=== PATIENT | male | born 1955 | race Caucasian/White ===

== ENCOUNTER 2022-12-30 18:42 | Inpatient (IN) | payer MEDICARE, MEDICAID, SELFPAY ==
[2022-12-30 19:08] VITALS: BP 133/94; PULSE 84; RESP 18; TEMP 36.2; O2SAT 95
[2022-12-30] MEDS: hydrOXYzine HCL 25 MG TABLET PO (20:16)
[2022-12-30] MEDS: traZODone HCL 50 MG TABLET PO (20:17)
[2022-12-30] MEDS: Divalproex Sodium 500 MG TABLET.DR 1500 MG PO (22:24)
--- NOTE | 2022-12-31 00:03 | PC.ADMIT ---
[id number] pt is a 67 yr old male who is a hospital to hospital transfer. he has cognitive deficits with an IQ of 59. pt recently walked out into traffic with the intention of ending his life. he has had previous attempts of ending his life in the same fashion. he resides at a custodial and states that he he his bored. he states that other residents stay in their rooms and do not interact with him. pt denies si and hi at this time. he is alert and responds appropriately. his affect is flat. his sensorium is intact. hand grasp equal/firm. culp in a purposeful fashion. ambulates independently with strong steady gait. pt states that he has hx of chronic arthritic pain is his back and legs.visible skin surfaces intact. he is edentulous. he states that he has no dentures. he has NIDDM and takes metformin bid. he is on a regular diet and he check his blood sugar in the mornings. resp effort is regular unlabored. hemodynamically stable. abdomen is unremarkable. took pills one at a time whole without difficulty. states normal bm earlier today. continent of bowel and bladder.
[2022-12-31 07:30] VITALS: BP 144/73; PULSE 93; RESP 16; TEMP 36.1; O2SAT 94
[2022-12-31 07:45] LABS: MANUAL DIFF FLAG NO
[2022-12-31 07:49] LABS: Basophils Percent Auto 0.7 % (0-2); Eosinophils Absolute Auto 0.3 X10*3/uL (0.0-0.4); Eosinophils Percent Auto 4.4 % (0-4); Hemoglobin 13.4 g/dl (14.0-18.0); Imm Gran Abs Auto 0.06 X10*3/uL (0.00-0.03); Lymphocytes Absolute Auto 1.7 X10*3/uL (1.2-4.9); Lymphocytes Percent Auto 28.2 % (20-40); Mean Corpuscular HGB Conc 33.5 g/dl (31.0-36.0); Mean Corpuscular Hemoglobin 31.2 pg (27.0-33.0); Mean Platelet Volume 9.7 fL (9.4-12.4); Monocytes Absolute Auto 0.7 X10*3/uL (0.1-1.2); Monocytes Percent Auto 12.1 % (2-11); Neutrophils Absolute Auto 3.2 x10*3/uL (2.0-8.3); Neutrophils Percent Auto 53.6 % (45-73); Platelet Count 247 X10*3/uL (160-400); Red Cell Distribution Width 13.2 % (11.0-16.0)
[2022-12-31 08:16] LABS: Estimated Average Glucose 174 mg/dL; Hemoglobin A1c % 7.7 %
[2022-12-31 08:22] LABS: Alanine Aminotransferase 18 U/L (0-40); Albumin Level 3.8 g/dL (3.5-5.0); Alkaline Phosphatase 117 U/L (39-117); Anion Gap 14 (12-20); Aspartate Amino Transferase 20 U/L (5-37); Bilirubin Total 0.4 mg/dL (0.0-1.0); Blood Urea Nitrogen 13 mg/dL (9-16); Calcium 8.6 mg/dL (8.4-10.2); Carbon Dioxide 24 mmol/L (22-29); Chloride 105 mmol/L (96-108); Cholesterol 128 mg/dL; Estimated Glomerular Filt Rate > 60; Glucose Fasting 148 mg/dL (60-99); HDL Cholesterol 30 mg/dL; LDL Cholesterol Calculated 70 mg/dl; Potassium 4.6 mmol/L (3.3-5.1); Sodium 138 mmol/L (135-145); Triglycerides 144 mg/dL
[2022-12-31 08:40] LABS: TSH reflex Free T4 1.15 uIU/mL (0.32-4.0)
[2022-12-31 08:48] LABS: Valproate 53.8 mcg/mL (50.0-100.0)
[2022-12-31] MEDS: DULoxetine HCl 60 MG CAPSULE.DR PO (08:58)
[2022-12-31] MEDS: Atorvastatin Calcium 40 MG TABLET PO (08:58)
[2022-12-31] MEDS: Aspirin Enteric Coated 81 MG TABLET.DR PO (08:58)
[2022-12-31] MEDS: Divalproex Sodium 500 MG TABLET.DR 1000 MG PO (08:58)
--- NOTE | 2022-12-31 08:58 | HO.PSYADMNOT ---
HPI Date of Service: 12/31/22 Chief Complaint: depression si Sources of Information: patient interviewed, chart reviewed and crisis/core team assessment reviewed HPI Subjective Notes: Bravo Warning and Conditional Voluntary Narrative: Patient is a 67-year-old male referred from the [facility] in [facility] . The patient has a history of depression has been chronically unhappy living and his group DDS home feeling trapped unhappy not able to easily articulate his difficulty there but apparently has been trying to moved to leave this has not been happening. 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 but feels he has not had much of a quality of life perhaps some this related to COVID unclear if he has been psychiatrically hospitalized previously the patient is cognitively limited Past Psychiatric History: Patient has had episodes of depression despair has apparently walked out into the road previously has been happy with his living situation Medical Evaluation Reviewed: Hospitalist Sammy Pending Patient does have a history of diabetes prostatic hypertrophy [facility] Medical History (Updated 12/31/22 @ 21:30 by Brad Pelayo MD) Chronic low back pain Depression Fibromyalgia GERD (gastroesophageal reflux disease) HLD (hyperlipidemia) HTN (hypertension) Major depression, recurrent Type 2 diabetes mellitus Social History: Patient never been no children he was involved in a long-term relationship previously. He does have DDS management in lives in a DDS [facility] he enjoys being active engage in the community and feels his quality of life has diminished He does have family in [place] Substance History: None noted Diagnostics Vital Signs (24Hr): Vital Signs - 24 hr 12/30/22 19:08 Temperature 97.2 F Pulse Rate 84 Respiratory Rate 18 Blood Pressure 133/94 H Pulse Oximetry 95 Oxygen Delivery Method Room Air Labs 12/31/22 07:01 12/31/22 07:01 Labs: Laboratory Results - last 48 hr 12/31/22 12/31/22 12/31/22 07:01 07:01 07:01 WBC 6.0 RBC 4.30 L Hgb 13.4 L Hct 40.0 L MCV 93.0 MCH 31.2 MCHC 33.5 RDW 13.2 Plt Count 247 MPV 9.7 Immature Gran % (Auto) 1.0 H Neut % (Auto) 53.6 Lymph % (Auto) 28.2 [place] % (Auto) 12.1 H Eos % (Auto) 4.4 H Baso % (Auto) 0.7 Lymph # (Auto) 1.7 [place] # (Auto) 0.7 Eos # (Auto) 0.3 Baso # (Auto) 0.0 Abs Immat Gran (auto) 0.06 H Absolute Neuts (auto) 3.2 Absolute Nucleated RBC 0.000 Nucleated RBC % (auto) 0.0 Sodium 138 Potassium 4.6 Chloride 105 Carbon Dioxide 24 Anion Gap 14 BUN 13 Creatinine 0.77 Estim Creat Clear Calc TNP Estimated GFR > 60 Fasting Glucose 148 H Estimat Average Glucose 174 Hemoglobin A1c % 7.7 Calcium 8.6 Total Bilirubin 0.4 AST 20 ALT 18 Alkaline Phosphatase 117 Total Protein 6.0 L Albumin 3.8 Triglycerides 144 Cholesterol 128 LDL Cholesterol, Calc 70 HDL Cholesterol 30 TSH 1.15 Valproic Acid 12/31/22 07:01 WBC RBC Hgb Hct MCV MCH MCHC RDW Plt Count MPV Immature Gran % (Auto) Neut % (Auto) Lymph % (Auto) [place] % (Auto) Eos % (Auto) Baso % (Auto) Lymph # (Auto) [place] # (Auto) Eos # (Auto) Baso # (Auto) Abs Immat Gran (auto) Absolute Neuts (auto) Absolute Nucleated RBC Nucleated RBC % (auto) Sodium Potassium Chloride Carbon Dioxide Anion Gap BUN Creatinine Estim Creat Clear Calc Estimated GFR Fasting Glucose Estimat Average Glucose Hemoglobin A1c % Calcium Total Bilirubin AST ALT Alkaline Phosphatase Total Protein Albumin Triglycerides Cholesterol LDL Cholesterol, Calc HDL Cholesterol TSH Valproic Acid 53.8 Meds/Allergies Meds Home Medications Medication Instructions Recorded Confirmed Type aspirin 81 mg capsule 81 mg PO DAILY 12/30/22 12/30/22 History atorvastatin 40 mg tablet (Lipitor) 40 mg PO DAILY 12/30/22 12/30/22 History carbamide peroxide 6.5 % ear drops 6.5 drp 12/30/22 History (Debrox) cetirizine 10 mg capsule (Zyrtec) mg 12/30/22 History cholecalciferol (vitamin D3) 25 12/30/22 History mcg (1,000 unit) tablet (Vitamin D3) diclofenac sodium 75 mg mg PO 12/30/22 History tablet,delayed release divalproex 500 mg tablet,delayed 1,000 mg PO DAILY 12/30/22 12/30/22 History release divalproex 500 mg tablet,delayed 1,500 mg PO BEDTIME 12/30/22 12/30/22 History release duloxetine 60 mg capsule,delayed 60 mg PO DAILY 12/30/22 12/30/22 History release (Cymbalta) fesoterodine 8 mg tablet,extended mg PO 12/30/22 History release 24 hr (Toviaz) metformin 1,000 mg tablet mg 12/30/22 History omeprazole 20 mg tablet,delayed mg PO 12/30/22 History release tamsulosin 0.4 mg capsule (Flomax) mg PO 12/30/22 History trazodone 50 mg tablet mg 12/30/22 History Allergies Allergies Allergy/AdvReac Type Severity Reaction Status Date / Time No Known Allergies Allergy Verified 12/30/22 19:04 Mental Status Exam Mental Status Exam Narrative: Patient is wearing hospital garb he is somewhat disheveled sad looking. Speech is somewhat low is somewhat concrete full capillary somewhat limited. His able to state he has been feeling sad no one is helping him very unhappy where he is living in his current life states why would not walk down the road nothing is going to change at other times stating he did not want to harm himself denies any plan or intent in the setting no hallucinations or delusional material patient is somewhat hopeless helpless impulse control seems intact in the setting no thoughts of harm to others Assessment & Plan Assessment & Plan (1) Major depression, recurrent: Status: Acute Code(s): F33.9 - Major depressive disorder, recurrent, unspecified (2) Cognitive disorder: Status: Acute Code(s): F09 - Unspecified mental disorder due to known physiological condition Plan Need to clarify further history triggers to present events patient clearly hopeless helpless unclear if was truly trying to harm himself Continue antidepressant Depakote appears to be because of impulse control difficulties social work for additional information help with discharge planning continue duloxetine Depakote for now unclear if the patient has had any response Patient educated on: diagnosis and therapeutic strategies Informed Consent: further education needed Reason for continued inpatient stay Substantial Risk for: harm to self Statement Statement: I have reviewed the history and physical and performed a pertinent examination on my patient. No changes have occurred unless specified. If the History and Physical was not performed prior to admission, the Hospitalist's service will be consulted for completing the admission physical. Time Spent With Patient Time: Total time managing care of this patient today _50___ minutes.
--- NOTE | 2022-12-31 14:46 | P.CONHOSP_ITS ---
History of Present Illness Data of Consult Service Date: 12/31/22 Requesting physician: Brad Pelayo Primary Care Provider: Mitch Keene MD HPI Reason for consult: medical H&P 67-year-old male with history of hyperlipidemia, hypertension, depression, type 2 diabetes, fibromyalgia, GERD, and BPH admitted to Psychiatry with consult placed to hospitalist service for medical H and P. The patient's most recent hemoglobin A1c was 7.7% earlier today. He has [id number]. He is reporting chronic low back pain and chronic pain in his legs. Denies any alcohol use, cigarette smoking, or illicit drug use. Denies any other complaints at this time. Review of Systems Review of Systems: General: No fevers, malaise, unintentional weight loss HEENT: No blurred vision, diplopia. No sore throat, nasal congestion, rhinorrhea, sinus pain, ear pain Cardiovascular: No chest pain, palpitations, or leg edema Respiratory: No shortness of breath, wheezing, cough GI: No abdominal pain, nausea, vomiting, diarrhea, constipation, melena, hematochezia : No dysuria, hematuria, increased urinary frequency, decreased urinary output MSK: No myalgia. +leg pain, +back pain Neuro: No headaches, weakness, paresthesias Skin: No rashes or lesions [facility] Medical History (Updated 12/31/22 @ 15:07 by OSCAR Devi) Chronic low back pain Depression Fibromyalgia GERD (gastroesophageal reflux disease) HLD (hyperlipidemia) HTN (hypertension) Type 2 diabetes mellitus Social History Currently Displaying Signs/Symptoms of Drug Intoxication Withdrawal: No Advance Directives: No Advance Directives Information Provided: No Do you have thoughts of harming others: None Do you have a plan to hurt others: No Plan Meds Allergies Allergy/AdvReac Type Severity Reaction Status Date / Time No Known Allergies Allergy Verified 12/30/22 19:04 Active Medications: Current Medications Acetaminophen (Acetaminophen 325 Mg Tablet) 650 mg PO Q6H PRN PRN Reason: Headache/Pain Mild Scale (1-3) Al Hydroxide/Mg Hydroxide (Magnesium Hydrox/Alum Hydrox 30 Ml Oral.Susp) 30 ml PO Q6H PRN PRN Reason: Heartburn/Nausea Aspirin (Aspirin Enteric Coated 81 Mg Tablet.Dr) 81 mg PO DAILY [facility] Last Admin: 12/31/22 08:58 Dose: 81 mg Atorvastatin Calcium (Atorvastatin Calcium 40 Mg Tablet) 40 mg PO DAILY [facility] Last Admin: 12/31/22 08:58 Dose: 40 mg Divalproex Sodium (Divalproex Sodium 500 Mg Tablet.) 1,000 mg PO DAILY [facility] Last Admin: 12/31/22 08:58 Dose: 1,000 mg Divalproex Sodium (Divalproex Sodium 500 Mg Tablet.) 1,500 mg PO BEDTIME [facility] Last Admin: 12/30/22 22:24 Dose: 1,500 mg Duloxetine HCl (Duloxetine Hcl 60 Mg Capsule.) 60 mg PO DAILY [facility] Last Admin: 12/31/22 08:58 Dose: 60 mg Hydroxyzine HCl (Hydroxyzine Hcl 25 Mg Tablet) 25 mg PO Q6H PRN PRN Reason: Anxiety Last Admin: 12/30/22 20:16 Dose: 25 mg Magnesium Hydroxide (Milk Of Magnesia 30 Ml Oral.Susp) 30 ml PO DAILY PRN PRN Reason: Constipation Trazodone HCl (Trazodone Hcl 50 Mg Tablet) 50 mg PO BEDTIME MRX1 PRN PRN Reason: Insomnia Last Admin: 12/30/22 20:17 Dose: 50 mg Home Medications Medication Instructions Recorded Confirmed Last Taken Type aspirin 81 mg capsule 81 mg PO DAILY 12/30/22 12/30/22 Unknown History atorvastatin 40 mg tablet (Lipitor) 40 mg PO DAILY 12/30/22 12/30/22 Unknown History carbamide peroxide 6.5 % ear drops 6.5 drp 12/30/22 Unknown History (Debrox) cetirizine 10 mg capsule (Zyrtec) mg 12/30/22 Unknown History cholecalciferol (vitamin D3) 25 12/30/22 Unknown History mcg (1,000 unit) tablet (Vitamin D3) diclofenac sodium 75 mg mg PO 12/30/22 Unknown History tablet,delayed release divalproex 500 mg tablet,delayed 1,000 mg PO DAILY 12/30/22 12/30/22 Unknown History release divalproex 500 mg tablet,delayed 1,500 mg PO BEDTIME 12/30/22 12/30/22 Unknown History release duloxetine 60 mg capsule,delayed 60 mg PO DAILY 12/30/22 12/30/22 Unknown History release (Cymbalta) fesoterodine 8 mg tablet,extended mg PO 12/30/22 Unknown History release 24 hr (Toviaz) metformin 1,000 mg tablet mg 12/30/22 Unknown History omeprazole 20 mg tablet,delayed mg PO 12/30/22 Unknown History release tamsulosin 0.4 mg capsule (Flomax) mg PO 12/30/22 Unknown History trazodone 50 mg tablet mg 12/30/22 Unknown History Physical Exam Vital Signs and Narrative: Vital Signs: Last Vital Signs Temp 97.2 F 12/30/22 19:08 Pulse 84 12/30/22 19:08 Resp 18 12/30/22 19:08 BP 133/94 H 12/30/22 19:08 Pulse Ox 95 12/30/22 19:08 O2 Del Method 12/30/22 19:08 Constitutional - Awake and Alert, No apparent distress Eyes - PERRLA, EOMI Cardiovascular - S1S2, RRR, No edema Respiratory - Normal lung expansion, Normal respiratory effort, No respiratory distress, CTA bilaterally Gastrointestinal - NT / ND; +BS; No rebound or guarding Extremities - no calf tenderness bilaterally, no swelling Skin - Warm/Dry Neurological - Alert & oriented x3, CN II-XII in tact, 5/5 strength BUE and BLE Psychological - Appropriate affect Results Labs 12/31/22 07:01 12/31/22 07:01 Labs: Laboratory Results - last 24 hr 12/31/22 12/31/22 12/31/22 07:01 07:01 07:01 MCV 93.0 MCH 31.2 MCHC 33.5 RDW 13.2 Plt Count 247 MPV 9.7 Immature Gran % (Auto) 1.0 H Neut % (Auto) 53.6 Lymph % (Auto) 28.2 [place] % (Auto) 12.1 H Eos % (Auto) 4.4 H Baso % (Auto) 0.7 Lymph # (Auto) 1.7 [place] # (Auto) 0.7 Eos # (Auto) 0.3 Baso # (Auto) 0.0 Abs Immat Gran (auto) 0.06 H Absolute Neuts (auto) 3.2 Absolute Nucleated RBC 0.000 Nucleated RBC % (auto) 0.0 Anion Gap 14 Estim Creat Clear Calc TNP Estimated GFR > 60 Fasting Glucose 148 H Estimat Average Glucose 174 Hemoglobin A1c % 7.7 Calcium 8.6 Total Bilirubin 0.4 AST 20 ALT 18 Alkaline Phosphatase 117 Total Protein 6.0 L Albumin 3.8 Triglycerides 144 Cholesterol 128 LDL Cholesterol, Calc 70 HDL Cholesterol 30 TSH 1.15 Valproic Acid 12/31/22 07:01 MCV MCH MCHC RDW Plt Count MPV Immature Gran % (Auto) Neut % (Auto) Lymph % (Auto) [place] % (Auto) Eos % (Auto) Baso % (Auto) Lymph # (Auto) [place] # (Auto) Eos # (Auto) Baso # (Auto) Abs Immat Gran (auto) Absolute Neuts (auto) Absolute Nucleated RBC Nucleated RBC % (auto) Anion Gap Estim Creat Clear Calc Estimated GFR Fasting Glucose Estimat Average Glucose Hemoglobin A1c % Calcium Total Bilirubin AST ALT Alkaline Phosphatase Total Protein Albumin Triglycerides Cholesterol LDL Cholesterol, Calc HDL Cholesterol TSH Valproic Acid 53.8 Assessment and Plan (1) Routine medical exam: Status: Acute Plan 67-year-old male with history of hyperlipidemia, hypertension, depression, type 2 diabetes, fibromyalgia, GERD, and BPH admitted to Psychiatry with consult placed to hospitalist service for medical H and P. #Depression -plan per psychiatry #HTN- reasonably controlled -Monitor BP -continue amlodipine 5mg and lisinopril 10mg dialy #HLD -continue statin #Uncontrolled type 2 diabetes -A1c 7.7%, goal <7.0% -POC glucose -recommend diabetic diet -Humalog on sliding scale #Fibromyalgia -continue duloxetine -Enourage exercise, weight loss #BPH -continue flomax, fesoterodine #GERD -continue ppi #Chronic low back pain -tylenol, lidocaine patch Thank you for allowing me to participate in this consult. Signing off at this time. Please do not hesitate to call for further questions. Time Spent With Patient Time: Total time managing care of this patient today ____ minutes.
[2022-12-31 18:00] VITALS: BP 150/72; PULSE 93; RESP 16; TEMP 36.3; O2SAT 97
[2022-12-31] MEDS: metFORMIN HCl 1,000 MG TABLET 1000 MG PO (18:50)
[2022-12-31 20:05] LABS: Glucose, Whole Blood 118 mg/dL (60-115)
[2022-12-31] MEDS: Divalproex Sodium 500 MG TABLET.DR 1500 MG PO (20:35)
[2022-12-31] MEDS: Acetaminophen 325 MG TABLET 650 MG PO (20:36)
[2022-12-31] MEDS: hydrOXYzine HCL 25 MG TABLET PO (20:38)
[2022-12-31 22:00] VITALS: BMI 29.7
[2023-01-01 06:00] VITALS: BP 135/64; PULSE 99; RESP 18; O2SAT 99
[2023-01-01 08:01] LABS: Glucose, Whole Blood 172 mg/dL (60-115)
[2023-01-01] MEDS: Insulin Lispro 100 UNIT/ML 3 ML VIAL SUBCUT ×3 (09:00→21:52)
[2023-01-01] MEDS: DULoxetine HCl 60 MG CAPSULE.DR PO (10:03)
[2023-01-01] MEDS: Atorvastatin Calcium 40 MG TABLET PO (10:03)
[2023-01-01] MEDS: amLODIPine Besylate 5 MG TABLET PO (10:03)
[2023-01-01] MEDS: Divalproex Sodium 500 MG TABLET.DR 1000 MG PO (10:04)
[2023-01-01] MEDS: metFORMIN HCl 1,000 MG TABLET 1000 MG PO ×2 (10:04→16:32)
[2023-01-01] MEDS: lisinopriL 5 MG TABLET PO (10:04)
[2023-01-01] MEDS: Aspirin Enteric Coated 81 MG TABLET.DR PO (10:05)
[2023-01-01] MEDS: Lidocaine 4 % Patch ADH..PATCH 1 PATCH TRANSDERMA (10:10)
[2023-01-01 16:29] LABS: Glucose, Whole Blood 163 mg/dL (60-115)
[2023-01-01 18:00] VITALS: BP 135/85; PULSE 112; RESP 18; TEMP 36.3; O2SAT 96
[2023-01-01] MEDS: Divalproex Sodium 500 MG TABLET.DR 1500 MG PO (20:25)
--- NOTE | 2023-01-01 20:51 | HO.PSYCHPN ---
Subjective Subjective Date of Service: 01/01/23 Reason For Visit: depression si Subjective Notes: Conditional Voluntary Interim History: Patient seen psychiatric follow-up has been in behavioral control still ruminating regarding his living situation and have difficulty it is for him to tolerate Mental Status Exam Mental Status Exam Narrative: Patient is wearing hospital garb he is somewhat disheveled sad looking. Speech is somewhat low is somewhat concrete thinking somewhat limited limited vocabulary. His able to state he has been feeling sad no one is helping him very unhappy where he is living in his current life states why would not walk down the road nothing is going to change at other times stating he did not want to harm himself denies any plan or intent in the setting no hallucinations or delusional material patient is somewhat hopeless helpless impulse control seems intact in the setting no thoughts of harm to others Patient was come when seen somewhat morose denies active suicidality in this setting Diagnostics Vital Signs (24Hr): Vital Signs - 24 hr 01/01/23 06:00 Pulse Rate 99 Respiratory Rate 18 Blood Pressure 135/64 Pulse Oximetry 99 Oxygen Delivery Method Room Air BMI result Body Mass Index 29.7 Labs 12/31/22 07:01 12/31/22 07:01 Labs: Laboratory Results - last 48 hr 12/31/22 12/31/22 12/31/22 07:01 07:01 07:01 WBC 6.0 RBC 4.30 L Hgb 13.4 L Hct 40.0 L MCV 93.0 MCH 31.2 MCHC 33.5 RDW 13.2 Plt Count 247 MPV 9.7 Immature Gran % (Auto) 1.0 H Neut % (Auto) 53.6 Lymph % (Auto) 28.2 [place] % (Auto) 12.1 H Eos % (Auto) 4.4 H Baso % (Auto) 0.7 Lymph # (Auto) 1.7 [place] # (Auto) 0.7 Eos # (Auto) 0.3 Baso # (Auto) 0.0 Abs Immat Gran (auto) 0.06 H Absolute Neuts (auto) 3.2 Absolute Nucleated RBC 0.000 Nucleated RBC % (auto) 0.0 Sodium 138 Potassium 4.6 Chloride 105 Carbon Dioxide 24 Anion Gap 14 BUN 13 Creatinine 0.77 Estim Creat Clear Calc TNP Estimated GFR > 60 POC Glucose Fasting Glucose 148 H Estimat Average Glucose 174 Hemoglobin A1c % 7.7 Calcium 8.6 Total Bilirubin 0.4 AST 20 ALT 18 Alkaline Phosphatase 117 Total Protein 6.0 L Albumin 3.8 Triglycerides 144 Cholesterol 128 LDL Cholesterol, Calc 70 HDL Cholesterol 30 TSH 1.15 Valproic Acid 12/31/22 12/31/22 01/01/23 07:01 16:36 07:56 WBC RBC Hgb Hct MCV MCH MCHC RDW Plt Count MPV Immature Gran % (Auto) Neut % (Auto) Lymph % (Auto) [place] % (Auto) Eos % (Auto) Baso % (Auto) Lymph # (Auto) [place] # (Auto) Eos # (Auto) Baso # (Auto) Abs Immat Gran (auto) Absolute Neuts (auto) Absolute Nucleated RBC Nucleated RBC % (auto) Sodium Potassium Chloride Carbon Dioxide Anion Gap BUN Creatinine Estim Creat Clear Calc Estimated GFR POC Glucose 118 H 172 H Fasting Glucose Estimat Average Glucose Hemoglobin A1c % Calcium Total Bilirubin AST ALT Alkaline Phosphatase Total Protein Albumin Triglycerides Cholesterol LDL Cholesterol, Calc HDL Cholesterol TSH Valproic Acid 53.8 01/01/23 16:23 WBC RBC Hgb Hct MCV MCH MCHC RDW Plt Count MPV Immature Gran % (Auto) Neut % (Auto) Lymph % (Auto) [place] % (Auto) Eos % (Auto) Baso % (Auto) Lymph # (Auto) [place] # (Auto) Eos # (Auto) Baso # (Auto) Abs Immat Gran (auto) Absolute Neuts (auto) Absolute Nucleated RBC Nucleated RBC % (auto) Sodium Potassium Chloride Carbon Dioxide Anion Gap BUN Creatinine Estim Creat Clear Calc Estimated GFR POC Glucose 163 H Fasting Glucose Estimat Average Glucose Hemoglobin A1c % Calcium Total Bilirubin AST ALT Alkaline Phosphatase Total Protein Albumin Triglycerides Cholesterol LDL Cholesterol, Calc HDL Cholesterol TSH Valproic Acid Medications Medications Current Medications Acetaminophen (Acetaminophen 325 Mg Tablet) 650 mg PO Q6H PRN PRN Reason: Headache/Pain Mild Scale (1-3) Last Admin: 12/31/22 20:36 Dose: 650 mg Al Hydroxide/Mg Hydroxide (Magnesium Hydrox/Alum Hydrox 30 Ml Oral.Susp) 30 ml PO Q6H PRN PRN Reason: Heartburn/Nausea Amlodipine Besylate (Amlodipine Besylate 5 Mg Tablet) 5 mg PO DAILY [facility]; Protocol Last Admin: 01/01/23 10:03 Dose: 5 mg Aspirin (Aspirin Enteric Coated 81 Mg Tablet.Dr) 81 mg PO DAILY [facility] Last Admin: 01/01/23 10:05 Dose: 81 mg Atorvastatin Calcium (Atorvastatin Calcium 40 Mg Tablet) 40 mg PO DAILY [facility] Last Admin: 01/01/23 10:03 Dose: 40 mg Dextrose (Dextrose 50 % 25 Gm/50 Ml Syringe) 25 gm IVPUSH Q15M PRN; Protocol PRN Reason: per Hypoglycemia Standing Ord. Divalproex Sodium (Divalproex Sodium 500 Mg Tablet.) 1,000 mg PO DAILY [facility] Last Admin: 01/01/23 10:04 Dose: 1,000 mg Divalproex Sodium (Divalproex Sodium 500 Mg Tablet.) 1,500 mg PO BEDTIME [facility] Last Admin: 01/01/23 20:25 Dose: 1,500 mg Duloxetine HCl (Duloxetine Hcl 60 Mg Capsule.) 60 mg PO DAILY [facility] Last Admin: 01/01/23 10:03 Dose: 60 mg Glucose (Glucose Gel 15 Gm Gel..Gram.) 15 gm PO Q15M PRN; Protocol PRN Reason: per Hypoglycemia Standing Ord. Hydroxyzine HCl (Hydroxyzine Hcl 25 Mg Tablet) 25 mg PO Q6H PRN PRN Reason: Anxiety Last Admin: 12/31/22 20:38 Dose: 25 mg Insulin Human Lispro (Insulin Lispro 100 Unit/Ml 3 Ml Vial) 0 unit SUBCUT QIDACHS [facility]; Protocol Last Admin: 01/01/23 16:31 Dose: 2 unit Lidocaine (Lidocaine 4 % Patch Adh..Patch) 1 patch TRANSDERMA DAILY [facility]; Protocol Last Admin: 01/01/23 10:10 Dose: 1 patch Lisinopril (Lisinopril 5 Mg Tablet) 5 mg PO DAILY [facility]; Protocol Last Admin: 01/01/23 10:04 Dose: 5 mg Magnesium Hydroxide (Milk Of Magnesia 30 Ml Oral.Susp) 30 ml PO DAILY PRN PRN Reason: Constipation Metformin HCl (Metformin Hcl 1,000 Mg Tablet) 1,000 mg PO BIDWM [facility] Last Admin: 01/01/23 16:32 Dose: 1,000 mg Trazodone HCl (Trazodone Hcl 50 Mg Tablet) 50 mg PO BEDTIME MRX1 PRN PRN Reason: Insomnia Last Admin: 12/30/22 20:17 Dose: 50 mg Allergies Allergies Allergy/AdvReac Type Severity Reaction Status Date / Time No Known Allergies Allergy Verified 12/30/22 19:04 Assessment & Plan Assessment & Plan (1) Major depression, recurrent: Status: Acute Code(s): F33.9 - Major depressive disorder, recurrent, unspecified (2) Cognitive disorder: Status: Acute Code(s): F09 - Unspecified mental disorder due to known physiological condition Plan Need to clarify further history triggers to present events patient clearly hopeless helpless unclear if was truly trying to harm himself Continue antidepressant Depakote appears to be because of impulse control difficulties social work for additional information help with discharge planning continue duloxetine Depakote for now unclear if the patient has had any response 01/01/2023 Continue plan of care monitor safety get additional information from outpatient providers treatment team in DDS team unclear what options are available to the patient continue Depakote Cymbalta Reason for contiued inpatient stay Substantial Risk for: harm to self and rapid decompensation Time Spent With Patient Time: Total time managing care of this patient today ____ minutes.
[2023-01-01 21:46] LABS: Glucose, Whole Blood 231 mg/dL (60-115)
[2023-01-01] MEDS: hydrOXYzine HCL 25 MG TABLET PO (23:58)
[2023-01-02 06:00] VITALS: BP 160/71; PULSE 111; RESP 20; TEMP 36.1; O2SAT 95
[2023-01-02 07:38] LABS: Glucose, Whole Blood 196 mg/dL (60-115)
[2023-01-02] MEDS: Insulin Lispro 100 UNIT/ML 3 ML VIAL SUBCUT ×4 (08:22→19:59)
[2023-01-02] MEDS: metFORMIN HCl 1,000 MG TABLET 1000 MG PO ×2 (08:22→16:40)
[2023-01-02] MEDS: Atorvastatin Calcium 40 MG TABLET PO (08:23)
[2023-01-02] MEDS: Divalproex Sodium 500 MG TABLET.DR 1000 MG PO (08:23)
[2023-01-02] MEDS: amLODIPine Besylate 5 MG TABLET PO (08:23)
[2023-01-02] MEDS: lisinopriL 5 MG TABLET PO (08:23)
[2023-01-02] MEDS: Aspirin Enteric Coated 81 MG TABLET.DR PO (08:23)
[2023-01-02] MEDS: Lidocaine 4 % Patch ADH..PATCH 1 PATCH TRANSDERMA (08:23)
[2023-01-02] MEDS: DULoxetine HCl 60 MG CAPSULE.DR PO (08:23)
[2023-01-02 11:17] LABS: Glucose, Whole Blood 209 mg/dL (60-115)
[2023-01-02 16:39] LABS: Glucose, Whole Blood 206 mg/dL (60-115)
[2023-01-02 18:00] VITALS: BP 150/80; PULSE 100; RESP 18; TEMP 35.7; O2SAT 94
[2023-01-02 19:57] LABS: Glucose, Whole Blood 220 mg/dL (60-115)
[2023-01-02] MEDS: Divalproex Sodium 500 MG TABLET.DR 1500 MG PO (19:59)
--- NOTE | 2023-01-02 22:43 | P.PNPSI_ITS ---
Subjective Subjective Date of Service: 01/02/23 Reason For Visit: depression si Subjective Notes: Conditional Voluntary Interim History: Patient flat dysphoric not combative aggressive were overly agitated Medication Compliance: Yes Mental Status Exam Mental Status Exam Narrative: Patient is casually dressed he is somewhat disheveled sad looking. Speech is somewhat low is somewhat concrete thinking somewhat limited limited vocabulary. His able to state he has been feeling sad no one is helping him very unhappy where he is living in his current life states why would not walk down the road nothing is going to change at other times stating he did not want to harm himself denies any plan or intent in the setting no hallucinations or delusional material patient is somewhat hopeless helpless impulse control seems intact in the setting no thoughts of harm to others Diagnostics Vital Signs (24Hr): Vital Signs - 24 hr 01/02/23 06:00 01/02/23 18:00 Temperature 96.9 F 96.2 F L Pulse Rate 111 H 100 Respiratory Rate 20 18 Blood Pressure 160/71 H 150/80 H Pulse Oximetry 95 94 Oxygen Delivery Method Room Air Room Air BMI result Body Mass Index 29.7 Labs 12/31/22 07:01 12/31/22 07:01 Labs: Laboratory Results - last 48 hr 01/01/23 01/01/23 01/01/23 07:56 16:23 21:41 POC Glucose 172 H 163 H 231 H 01/02/23 01/02/23 01/02/23 07:33 11:13 16:35 POC Glucose 196 H 209 H 206 H 01/02/23 19:48 POC Glucose 220 H Medications Medications Current Medications Acetaminophen (Acetaminophen 325 Mg Tablet) 650 mg PO Q6H PRN PRN Reason: Headache/Pain Mild Scale (1-3) Last Admin: 12/31/22 20:36 Dose: 650 mg Al Hydroxide/Mg Hydroxide (Magnesium Hydrox/Alum Hydrox 30 Ml Oral.Susp) 30 ml PO Q6H PRN PRN Reason: Heartburn/Nausea Amlodipine Besylate (Amlodipine Besylate 5 Mg Tablet) 5 mg PO DAILY [facility]; Protocol Last Admin: 01/02/23 08:23 Dose: 5 mg Aspirin (Aspirin Enteric Coated 81 Mg Tablet.) 81 mg PO DAILY [facility] Last Admin: 01/02/23 08:23 Dose: 81 mg Atorvastatin Calcium (Atorvastatin Calcium 40 Mg Tablet) 40 mg PO DAILY [facility] Last Admin: 01/02/23 08:23 Dose: 40 mg Divalproex Sodium (Divalproex Sodium 500 Mg Tablet.) 1,000 mg PO DAILY [facility] Last Admin: 01/02/23 08:23 Dose: 1,000 mg Divalproex Sodium (Divalproex Sodium 500 Mg Tablet.) 1,500 mg PO BEDTIME [facility] Last Admin: 01/02/23 19:59 Dose: 1,500 mg Duloxetine HCl (Duloxetine Hcl 60 Mg Capsule.) 60 mg PO DAILY [facility] Last Admin: 01/02/23 08:23 Dose: 60 mg Glucose (Glucose Gel 15 Gm Gel..Gram.) 15 gm PO Q15M PRN; Protocol PRN Reason: per Hypoglycemia Standing Ord. Hydroxyzine HCl (Hydroxyzine Hcl 25 Mg Tablet) 25 mg PO Q6H PRN PRN Reason: Anxiety Last Admin: 01/01/23 23:58 Dose: 25 mg Dextrose (D10) 250 mls @ 750 mls/hr IV Q15M PRN; Protocol PRN Reason: per Hypoglycemia Standing Ord. Insulin Human Lispro (Insulin Lispro 100 Unit/Ml 3 Ml Vial) 0 unit SUBCUT QIDACHS [facility]; Protocol Last Admin: 01/02/23 19:59 Dose: 4 unit Lidocaine (Lidocaine 4 % Patch Adh..Patch) 1 patch TRANSDERMA DAILY [facility]; Protocol Last Admin: 01/02/23 08:23 Dose: 1 patch Lisinopril (Lisinopril 5 Mg Tablet) 5 mg PO DAILY [facility]; Protocol Last Admin: 01/02/23 08:23 Dose: 5 mg Magnesium Hydroxide (Milk Of Magnesia 30 Ml Oral.Susp) 30 ml PO DAILY PRN PRN Reason: Constipation Metformin HCl (Metformin Hcl 1,000 Mg Tablet) 1,000 mg PO BIDWM [facility] Last Admin: 01/02/23 16:40 Dose: 1,000 mg Trazodone HCl (Trazodone Hcl 50 Mg Tablet) 50 mg PO BEDTIME MRX1 PRN PRN Reason: Insomnia Last Admin: 12/30/22 20:17 Dose: 50 mg Allergies Allergies Allergy/AdvReac Type Severity Reaction Status Date / Time No Known Allergies Allergy Verified 12/30/22 19:04 Assessment & Plan Assessment & Plan (1) Major depression, recurrent: Status: Acute Code(s): F33.9 - Major depressive disorder, recurrent, unspecified (2) Cognitive disorder: Status: Acute Code(s): F09 - Unspecified mental disorder due to known physiological condition Plan Need to clarify further history triggers to present events patient clearly hopeless helpless unclear if was truly trying to harm himself Continue antidepressant Depakote appears to be because of impulse control difficulties social work for additional information help with discharge planning continue duloxetine Depakote for now unclear if the patient has had any response 01/01/2023 Continue plan of care monitor safety get additional information from outpatient providers treatment team in DDS team unclear what options are available to the patient continue Depakote Cymbalta 01/02/23 Pt seen in f/u mood dysphoric hopeless flat denies active si coordinate with bhn Reason for contiued inpatient stay Substantial Risk for: harm to self and rapid decompensation Time Spent With Patient Time: Total time managing care of this patient today ____ minutes.
[2023-01-03] MEDS: Magnesium Hydrox/Alum Hydrox 30 ML ORAL.SUSP PO (00:39)
[2023-01-03 07:37] LABS: Glucose, Whole Blood 204 mg/dL (60-115)
[2023-01-03] MEDS: Insulin Lispro 100 UNIT/ML 3 ML VIAL SUBCUT ×4 (08:20→21:07)
[2023-01-03] MEDS: Divalproex Sodium 500 MG TABLET.DR 1000 MG PO (08:21)
[2023-01-03] MEDS: Atorvastatin Calcium 40 MG TABLET PO (08:22)
[2023-01-03] MEDS: DULoxetine HCl 60 MG CAPSULE.DR PO (08:22)
[2023-01-03] MEDS: Aspirin Enteric Coated 81 MG TABLET.DR PO (08:22)
[2023-01-03] MEDS: metFORMIN HCl 1,000 MG TABLET 1000 MG PO ×2 (08:23→16:31)
[2023-01-03 08:30] VITALS: BP 144/80; PULSE 104; RESP 16; TEMP 36.2; O2SAT 96
[2023-01-03] MEDS: amLODIPine Besylate 5 MG TABLET PO (08:32)
[2023-01-03] MEDS: lisinopriL 5 MG TABLET PO (08:32)
[2023-01-03] MEDS: Lidocaine 4 % Patch ADH..PATCH 1 PATCH TRANSDERMA (09:21)
[2023-01-03 11:47] LABS: Glucose, Whole Blood 176 mg/dL (60-115)
--- NOTE | 2023-01-03 13:39 | P.PNPSI_ITS ---
Subjective Subjective Date of Service: 01/03/23 Reason For Visit: depression si Interim History: Patient withdrawn somewhat dysphoric periods of being social and engaged Medication Compliance: Yes Mental Status Exam Mental Status Exam Narrative: Patient is casually dressed he is somewhat disheveled sad looking. Speech is somewhat low is somewhat concrete thinking somewhat limited limited vocabulary. His able to state he has been feeling sad no one is helping him very unhappy where he is living in his current life states why would not walk down the road nothing is going to change at other times stating he did not want to harm himself denies any plan or intent in the setting no hallucinations or delusional material patient is somewhat hopeless helpless impulse control seems intact in the setting no thoughts of harm to others Diagnostics Vital Signs (24Hr): Vital Signs - 24 hr 01/02/23 18:00 01/03/23 08:30 Temperature 96.2 F L 97.2 F Pulse Rate 100 104 H Respiratory Rate 18 16 Blood Pressure 150/80 H 144/80 H Pulse Oximetry 94 96 Oxygen Delivery Method Room Air Room Air BMI result Body Mass Index 29.7 Labs 12/31/22 07:01 12/31/22 07:01 Labs: Laboratory Results - last 48 hr 01/01/23 01/01/23 01/02/23 16:23 21:41 07:33 POC Glucose 163 H 231 H 196 H 01/02/23 01/02/23 01/02/23 11:13 16:35 19:48 POC Glucose 209 H 206 H 220 H 01/03/23 01/03/23 07:32 11:42 POC Glucose 204 H 176 H Medications Medications Current Medications Acetaminophen (Acetaminophen 325 Mg Tablet) 650 mg PO Q6H PRN PRN Reason: Headache/Pain Mild Scale (1-3) Last Admin: 12/31/22 20:36 Dose: 650 mg Al Hydroxide/Mg Hydroxide (Magnesium Hydrox/Alum Hydrox 30 Ml Oral.Susp) 30 ml PO Q6H PRN PRN Reason: Heartburn/Nausea Last Admin: 01/03/23 00:39 Dose: 30 ml Amlodipine Besylate (Amlodipine Besylate 5 Mg Tablet) 5 mg PO DAILY [facility]; Protocol Last Admin: 01/03/23 08:32 Dose: 5 mg Aspirin (Aspirin Enteric Coated 81 Mg Tablet.) 81 mg PO DAILY [facility] Last Admin: 01/03/23 08:22 Dose: 81 mg Atorvastatin Calcium (Atorvastatin Calcium 40 Mg Tablet) 40 mg PO DAILY [facility] Last Admin: 01/03/23 08:22 Dose: 40 mg Divalproex Sodium (Divalproex Sodium 500 Mg Tablet.) 1,000 mg PO DAILY [facility] Last Admin: 01/03/23 08:21 Dose: 1,000 mg Divalproex Sodium (Divalproex Sodium 500 Mg Tablet.) 1,500 mg PO BEDTIME [facility] Last Admin: 01/02/23 19:59 Dose: 1,500 mg Duloxetine HCl (Duloxetine Hcl 60 Mg Capsule.) 60 mg PO DAILY [facility] Last Admin: 01/03/23 08:22 Dose: 60 mg Glucose (Glucose Gel 15 Gm Gel..Gram.) 15 gm PO Q15M PRN; Protocol PRN Reason: per Hypoglycemia Standing Ord. Hydroxyzine HCl (Hydroxyzine Hcl 25 Mg Tablet) 25 mg PO Q6H PRN PRN Reason: Anxiety Last Admin: 01/01/23 23:58 Dose: 25 mg Dextrose (D10) 250 mls @ 750 mls/hr IV Q15M PRN; Protocol PRN Reason: per Hypoglycemia Standing Ord. Insulin Human Lispro (Insulin Lispro 100 Unit/Ml 3 Ml Vial) 0 unit SUBCUT QIDACHS [facility]; Protocol Last Admin: 01/03/23 11:59 Dose: 2 unit Lidocaine (Lidocaine 4 % Patch Adh..Patch) 1 patch TRANSDERMA DAILY [facility]; Protocol Last Admin: 01/03/23 09:21 Dose: 1 patch Lisinopril (Lisinopril 5 Mg Tablet) 5 mg PO DAILY [facility]; Protocol Last Admin: 01/03/23 08:32 Dose: 5 mg Magnesium Hydroxide (Milk Of Magnesia 30 Ml Oral.Susp) 30 ml PO DAILY PRN PRN Reason: Constipation Metformin HCl (Metformin Hcl 1,000 Mg Tablet) 1,000 mg PO BIDWM [facility] Last Admin: 01/03/23 08:23 Dose: 1,000 mg Trazodone HCl (Trazodone Hcl 50 Mg Tablet) 50 mg PO BEDTIME MRX1 PRN PRN Reason: Insomnia Last Admin: 12/30/22 20:17 Dose: 50 mg Allergies Allergies Allergy/AdvReac Type Severity Reaction Status Date / Time No Known Allergies Allergy Verified 12/30/22 19:04 Assessment & Plan Assessment & Plan (1) Major depression, recurrent: Status: Acute Code(s): F33.9 - Major depressive disorder, recurrent, unspecified (2) Cognitive disorder: Status: Acute Code(s): F09 - Unspecified mental disorder due to known physiological condition Plan Need to clarify further history triggers to present events patient clearly hopeless helpless unclear if was truly trying to harm himself Continue antidepressant Depakote appears to be because of impulse control difficulties social work for additional information help with discharge planning continue duloxetine Depakote for now unclear if the patient has had any response 01/01/2023 Continue plan of care monitor safety get additional information from outpatient providers treatment team in DDS team unclear what options are available to the patient continue Depakote Cymbalta 01/02/23 Pt seen in f/u mood dysphoric hopeless flat denies active si coordinate with b[facility] 01/03/2023 Continue plan of care coordinate with outpatient providers Reason for contiued inpatient stay Substantial Risk for: harm to self and rapid decompensation Time Spent With Patient Time: Total time managing care of this patient today ____ minutes.
--- NOTE | 2023-01-03 14:10 | PC.NURSE ---
Marian Bosch, residential mortgage underwriter, called to question use of CPAP. Information received that pt does utilize CPAP and it would be brought in today before hs. Information received that pt received flu vaccine for this season in July 2022.
[2023-01-03 15:05] LABS: COVID-19 Test Negative (Negative); IDNOW Serial# BCCEAD1C
[2023-01-03 16:27] LABS: Glucose, Whole Blood 181 mg/dL (60-115)
--- NOTE | 2023-01-03 17:44 | PC.NURSE ---
CPAP brought in by Marian Chaudhari, residential service technician. Respiratory called to question need for inspection. Information received from respiratory that no inspection needed.
--- NOTE | 2023-01-03 17:52 | PC.NURSE ---
Reported not feeling well at lunch time. Nose running clear nasal drainage, sneezing, temp 97.2 temporal. Covid tested-results negative.
[2023-01-03 18:00] VITALS: BP 174/98; PULSE 106; RESP 16; TEMP 36.6; O2SAT 95
[2023-01-03] MEDS: Acetaminophen 325 MG TABLET 650 MG PO (20:57)
[2023-01-03 21:02] LABS: Glucose, Whole Blood 196 mg/dL (60-115)
[2023-01-04] MEDS: Divalproex Sodium 500 MG TABLET.DR 1500 MG PO ×2 (01:41→20:27)
[2023-01-04 06:00] VITALS: BP 148/88; PULSE 100; RESP 18; TEMP 37
[2023-01-04 07:39] LABS: Glucose, Whole Blood 209 mg/dL (60-115)
[2023-01-04] MEDS: Aspirin Enteric Coated 81 MG TABLET.DR PO (08:39)
[2023-01-04] MEDS: DULoxetine HCl 60 MG CAPSULE.DR PO (08:39)
[2023-01-04] MEDS: lisinopriL 5 MG TABLET PO (08:40)
[2023-01-04] MEDS: metFORMIN HCl 1,000 MG TABLET 1000 MG PO ×2 (08:40→16:24)
[2023-01-04] MEDS: Atorvastatin Calcium 40 MG TABLET PO (08:40)
[2023-01-04] MEDS: amLODIPine Besylate 5 MG TABLET PO (08:40)
[2023-01-04] MEDS: Insulin Lispro 100 UNIT/ML 3 ML VIAL SUBCUT ×3 (08:41→20:26)
[2023-01-04 11:35] LABS: Glucose, Whole Blood 195 mg/dL (60-115)
[2023-01-04 16:22] LABS: Glucose, Whole Blood 180 mg/dL (60-115)
[2023-01-04 18:00] VITALS: BP 163/84; PULSE 106; RESP 18; TEMP 36.5; O2SAT 96
[2023-01-04 20:23] LABS: Glucose, Whole Blood 187 mg/dL (60-115)
[2023-01-04] MEDS: Tamsulosin HCL 0.4 MG CAPSULE PO (20:27)
--- NOTE | 2023-01-04 22:08 | HO.PSYCHPN ---
Subjective Subjective Date of Service: 01/04/23 Reason For Visit: depression si Subjective Notes: Conditional Voluntary Healthcare Proxy: No Guardianship: No Interim History: Patient not aggressive flat anxious concern regarding lack of change in his living situation has not been threatening denies active suicidality Medication Compliance: Yes Diagnostics Vital Signs (24Hr): Vital Signs - 24 hr 01/04/23 06:00 01/04/23 18:00 Temperature 98.6 F 97.7 F Pulse Rate 100 106 H Respiratory Rate 18 18 Blood Pressure 148/88 H 163/84 H Pulse Oximetry 96 Oxygen Delivery Method Room Air BMI result Body Mass Index 29.7 Labs 12/31/22 07:01 12/31/22 07:01 Labs: Laboratory Results - last 48 hr 01/03/23 01/03/23 01/03/23 07:32 11:42 14:15 POC Glucose 204 H 176 H COVID-19 ([facility]) Negative COVID-19 Clin Com See Note 01/03/23 01/03/23 01/04/23 16:23 20:54 07:34 POC Glucose 181 H 196 H 209 H COVID-19 ([facility]) COVID-19 Clin Com 01/04/23 01/04/23 01/04/23 11:29 16:19 20:19 POC Glucose 195 H 180 H 187 H COVID-19 ([facility]) COVID-19 Clin Com Medications Medications Current Medications Acetaminophen (Acetaminophen 325 Mg Tablet) 650 mg PO Q6H PRN PRN Reason: Headache/Pain Mild Scale (1-3) Last Admin: 01/03/23 20:57 Dose: 650 mg Al Hydroxide/Mg Hydroxide (Magnesium Hydrox/Alum Hydrox 30 Ml Oral.Susp) 30 ml PO Q6H PRN PRN Reason: Heartburn/Nausea Last Admin: 01/03/23 00:39 Dose: 30 ml Amlodipine Besylate (Amlodipine Besylate 5 Mg Tablet) 5 mg PO DAILY [facility]; Protocol Last Admin: 01/04/23 08:40 Dose: 5 mg Aspirin (Aspirin Enteric Coated 81 Mg Tablet.) 81 mg PO DAILY [facility] Last Admin: 01/04/23 08:39 Dose: 81 mg Atorvastatin Calcium (Atorvastatin Calcium 40 Mg Tablet) 40 mg PO DAILY [facility] Last Admin: 01/04/23 08:40 Dose: 40 mg Divalproex Sodium (Divalproex Sodium 500 Mg Tablet.) 1,000 mg PO DAILY [facility] Last Admin: 01/04/23 12:54 Dose: Not Given Divalproex Sodium (Divalproex Sodium 500 Mg Tablet.) 1,500 mg PO BEDTIME [facility] Last Admin: 01/04/23 20:27 Dose: 1,500 mg Duloxetine HCl (Duloxetine Hcl 60 Mg Capsule.) 60 mg PO DAILY [facility] Last Admin: 01/04/23 08:39 Dose: 60 mg Glucose (Glucose Gel 15 Gm Gel..Gram.) 15 gm PO Q15M PRN; Protocol PRN Reason: per Hypoglycemia Standing Ord. Hydroxyzine HCl (Hydroxyzine Hcl 25 Mg Tablet) 25 mg PO Q6H PRN PRN Reason: Anxiety Last Admin: 01/01/23 23:58 Dose: 25 mg Dextrose (D10) 250 mls @ 750 mls/hr IV Q15M PRN; Protocol PRN Reason: per Hypoglycemia Standing Ord. Insulin Human Lispro (Insulin Lispro 100 Unit/Ml 3 Ml Vial) 0 unit SUBCUT QIDACHS [facility]; Protocol Last Admin: 01/04/23 20:26 Dose: 2 unit Lidocaine (Lidocaine 4 % Patch Adh..Patch) 1 patch TRANSDERMA DAILY [facility]; Protocol Last Admin: 01/04/23 12:54 Dose: Not Given Lisinopril (Lisinopril 5 Mg Tablet) 5 mg PO DAILY [facility]; Protocol Last Admin: 01/04/23 08:40 Dose: 5 mg Magnesium Hydroxide (Milk Of Magnesia 30 Ml Oral.Susp) 30 ml PO DAILY PRN PRN Reason: Constipation Metformin HCl (Metformin Hcl 1,000 Mg Tablet) 1,000 mg PO BIDWM [facility] Last Admin: 01/04/23 16:24 Dose: 1,000 mg Quetiapine Fumarate (Quetiapine Fumarate 25 Mg Tablet) 12.5 mg PO Q6H PRN PRN Reason: anxiety/restlessness Tamsulosin HCl (Tamsulosin Hcl 0.4 Mg Capsule) 0.4 mg PO BEDTIME [facility] Last Admin: 01/04/23 20:27 Dose: 0.4 mg Trazodone HCl (Trazodone Hcl 25 Mg Halftab) 25 mg PO Q4H PRN PRN Reason: anxiety/restlessness Allergies Allergies Allergy/AdvReac Type Severity Reaction Status Date / Time No Known Allergies Allergy Verified 12/30/22 19:04 Assessment & Plan Assessment & Plan (1) Major depression, recurrent: Status: Acute Code(s): F33.9 - Major depressive disorder, recurrent, unspecified (2) Cognitive disorder: Status: Acute Code(s): F09 - Unspecified mental disorder due to known physiological condition Plan Need to clarify further history triggers to present events patient clearly hopeless helpless unclear if was truly trying to harm himself Continue antidepressant Depakote appears to be because of impulse control difficulties social work for additional information help with discharge planning continue duloxetine Depakote for now unclear if the patient has had any response 01/01/2023 Continue plan of care monitor safety get additional information from outpatient providers treatment team in DDS team unclear what options are available to the patient continue Depakote Cymbalta 01/02/23 Pt seen in f/u mood dysphoric hopeless flat denies active si coordinate with bhn 01/03/2023 Continue plan of care coordinate with outpatient providers 01/04/2023 Continue plan of care Buster alonso added for help with periods of severe anxiety irritability Reason for contiued inpatient stay Substantial Risk for: harm to self, harm to others and rapid decompensation Time Spent With Patient Time: Total time managing care of this patient today ____ minutes.
[2023-01-05 07:31] LABS: Glucose, Whole Blood 224 mg/dL (60-115)
[2023-01-05] MEDS: Lidocaine 4 % Patch ADH..PATCH 1 PATCH TRANSDERMA (08:16)
[2023-01-05] MEDS: Divalproex Sodium 500 MG TABLET.DR 1000 MG PO (08:16)
[2023-01-05] MEDS: metFORMIN HCl 1,000 MG TABLET 1000 MG PO ×2 (08:16→16:39)
[2023-01-05] MEDS: DULoxetine HCl 60 MG CAPSULE.DR PO (08:17)
[2023-01-05] MEDS: Atorvastatin Calcium 40 MG TABLET PO (08:17)
[2023-01-05] MEDS: amLODIPine Besylate 5 MG TABLET PO (08:17)
[2023-01-05] MEDS: lisinopriL 5 MG TABLET PO (08:17)
[2023-01-05] MEDS: Aspirin Enteric Coated 81 MG TABLET.DR PO (08:17)
[2023-01-05] MEDS: Insulin Lispro 100 UNIT/ML 3 ML VIAL SUBCUT ×4 (08:18→20:34)
[2023-01-05 08:27] VITALS: BP 138/73; PULSE 122; RESP 18; O2SAT 95
[2023-01-05 11:20] LABS: Glucose, Whole Blood 263 mg/dL (60-115)
[2023-01-05 16:34] LABS: Glucose, Whole Blood 214 mg/dL (60-115)
[2023-01-05 20:21] LABS: Glucose, Whole Blood 155 mg/dL (60-115)
[2023-01-05] MEDS: Tamsulosin HCL 0.4 MG CAPSULE PO (20:34)
[2023-01-05] MEDS: Divalproex Sodium 500 MG TABLET.DR 1500 MG PO (20:34)
[2023-01-05 21:50] VITALS: BP 189/82; PULSE 117; RESP 18; TEMP 36.4; O2SAT 95
--- NOTE | 2023-01-05 23:03 | HO.PSYCHPN ---
Subjective Subjective Date of Service: 01/05/23 Reason For Visit: depression si Subjective Notes: Conditional Voluntary Interim History: pt cooperative denies active self harm improved mood Mental Status Exam Mental Status Exam Narrative: Patient is casually dressed he is somewhat disheveled sad looking. Speech is somewhat low is somewhat concrete thinking somewhat limited limited vocabulary. His able to state he has been feeling sad no one is helping him very unhappy where he is living in his current life states why would not walk down the road nothing is going to change at other times stating he did not want to harm himself denies any plan or intent in the setting no hallucinations or delusional material patient is somewhat hopeless helpless impulse control seems intact in the setting no thoughts of harm to others patterson affect mood improved Diagnostics Vital Signs (24Hr): Vital Signs - 24 hr 01/05/23 08:27 01/05/23 21:50 Temperature 97.6 F Pulse Rate 122 H 117 H Respiratory Rate 18 18 Blood Pressure 138/73 189/82 H Pulse Oximetry 95 95 Oxygen Delivery Method Room Air Room Air BMI result Body Mass Index 29.7 Labs 12/31/22 07:01 12/31/22 07:01 Labs: Laboratory Results - last 48 hr 01/04/23 01/04/23 01/04/23 07:34 11:29 16:19 POC Glucose 209 H 195 H 180 H 01/04/23 01/05/23 01/05/23 20:19 07:27 11:13 POC Glucose 187 H 224 H 263 H 01/05/23 01/05/23 16:29 20:17 POC Glucose 214 H 155 H Medications Medications Current Medications Acetaminophen (Acetaminophen 325 Mg Tablet) 650 mg PO Q6H PRN PRN Reason: Headache/Pain Mild Scale (1-3) Last Admin: 01/03/23 20:57 Dose: 650 mg Al Hydroxide/Mg Hydroxide (Magnesium Hydrox/Alum Hydrox 30 Ml Oral.Susp) 30 ml PO Q6H PRN PRN Reason: Heartburn/Nausea Last Admin: 01/03/23 00:39 Dose: 30 ml Amlodipine Besylate (Amlodipine Besylate 5 Mg Tablet) 5 mg PO DAILY [facility]; Protocol Last Admin: 01/05/23 08:17 Dose: 5 mg Aspirin (Aspirin Enteric Coated 81 Mg Tablet.) 81 mg PO DAILY [facility] Last Admin: 01/05/23 08:17 Dose: 81 mg Atorvastatin Calcium (Atorvastatin Calcium 40 Mg Tablet) 40 mg PO DAILY [facility] Last Admin: 01/05/23 08:17 Dose: 40 mg Divalproex Sodium (Divalproex Sodium 500 Mg Tablet.) 1,000 mg PO DAILY [facility] Last Admin: 01/05/23 08:16 Dose: 1,000 mg Divalproex Sodium (Divalproex Sodium 500 Mg Tablet.) 1,500 mg PO BEDTIME [facility] Last Admin: 01/05/23 20:34 Dose: 1,500 mg Duloxetine HCl (Duloxetine Hcl 60 Mg Capsule.) 60 mg PO DAILY [facility] Last Admin: 01/05/23 08:17 Dose: 60 mg Glucose (Glucose Gel 15 Gm Gel..Gram.) 15 gm PO Q15M PRN; Protocol PRN Reason: per Hypoglycemia Standing Ord. Hydroxyzine HCl (Hydroxyzine Hcl 25 Mg Tablet) 25 mg PO Q6H PRN PRN Reason: Anxiety Last Admin: 01/01/23 23:58 Dose: 25 mg Dextrose (D10) 250 mls @ 750 mls/hr IV Q15M PRN; Protocol PRN Reason: per Hypoglycemia Standing Ord. Insulin Human Lispro (Insulin Lispro 100 Unit/Ml 3 Ml Vial) 0 unit SUBCUT QIDACHS [facility]; Protocol Last Admin: 01/05/23 20:34 Dose: 2 unit Lidocaine (Lidocaine 4 % Patch Adh..Patch) 1 patch TRANSDERMA DAILY [facility]; Protocol Last Admin: 01/05/23 08:16 Dose: 1 patch Lisinopril (Lisinopril 5 Mg Tablet) 5 mg PO DAILY [facility]; Protocol Last Admin: 01/05/23 08:17 Dose: 5 mg Magnesium Hydroxide (Milk Of Magnesia 30 Ml Oral.Susp) 30 ml PO DAILY PRN PRN Reason: Constipation Metformin HCl (Metformin Hcl 1,000 Mg Tablet) 1,000 mg PO BIDWM [facility] Last Admin: 01/05/23 16:39 Dose: 1,000 mg Quetiapine Fumarate (Quetiapine Fumarate 25 Mg Tablet) 12.5 mg PO Q6H PRN PRN Reason: anxiety/restlessness Tamsulosin HCl (Tamsulosin Hcl 0.4 Mg Capsule) 0.4 mg PO BEDTIME [facility] Last Admin: 01/05/23 20:34 Dose: 0.4 mg Trazodone HCl (Trazodone Hcl 25 Mg Halftab) 25 mg PO Q4H PRN PRN Reason: anxiety/restlessness Allergies Allergies Allergy/AdvReac Type Severity Reaction Status Date / Time No Known Allergies Allergy Verified 12/30/22 19:04 Assessment & Plan Assessment & Plan (1) Major depression, recurrent: Status: Acute Code(s): F33.9 - Major depressive disorder, recurrent, unspecified (2) Cognitive disorder: Status: Acute Code(s): F09 - Unspecified mental disorder due to known physiological condition Plan Need to clarify further history triggers to present events patient clearly hopeless helpless unclear if was truly trying to harm himself Continue antidepressant Depakote appears to be because of impulse control difficulties social work for additional information help with discharge planning continue duloxetine Depakote for now unclear if the patient has had any response 01/01/2023 Continue plan of care monitor safety get additional information from outpatient providers treatment team in DDS team unclear what options are available to the patient continue Depakote Cymbalta 01/02/23 Pt seen in f/u mood dysphoric hopeless flat denies active si coordinate with n 01/03/2023 Continue plan of care coordinate with outpatient providers 01/04/2023 Continue plan of care Buster [email or web address] added for help with periods of severe anxiety irritability 01/05/23 Pt showing some improvement Patient educated on: therapeutic strategies Informed Consent: further education needed Reason for contiued inpatient stay Substantial Risk for: harm to self, harm to others and rapid decompensation Time Spent With Patient Time: Total time managing care of this patient today ____ minutes.
[2023-01-06 07:45] LABS: Glucose, Whole Blood 174 mg/dL (60-115)
[2023-01-06 07:52] VITALS: BP 133/77; PULSE 113; RESP 18; TEMP 36.6; O2SAT 94
[2023-01-06] MEDS: Insulin Lispro 100 UNIT/ML 3 ML VIAL SUBCUT ×4 (07:53→20:10)
[2023-01-06] MEDS: Divalproex Sodium 500 MG TABLET.DR 1000 MG PO (07:54)
[2023-01-06] MEDS: lisinopriL 5 MG TABLET PO (07:55)
[2023-01-06] MEDS: amLODIPine Besylate 5 MG TABLET PO (07:55)
[2023-01-06] MEDS: Atorvastatin Calcium 40 MG TABLET PO (07:55)
[2023-01-06] MEDS: DULoxetine HCl 60 MG CAPSULE.DR PO (07:55)
[2023-01-06] MEDS: metFORMIN HCl 1,000 MG TABLET 1000 MG PO ×2 (07:55→16:57)
[2023-01-06] MEDS: Lidocaine 4 % Patch ADH..PATCH 1 PATCH TRANSDERMA (07:56)
[2023-01-06] MEDS: Aspirin Enteric Coated 81 MG TABLET.DR PO (07:56)
[2023-01-06 11:44] LABS: Glucose, Whole Blood 218 mg/dL (60-115)
--- NOTE | 2023-01-06 13:13 | P.PNPSI_ITS ---
Subjective Subjective Date of Service: 01/06/23 Reason For Visit: depression si Subjective Notes: Conditional Voluntary Interim History: Patient medication compliant not overly agitated combative over paranoid. Somewhat flat difficult to engage regarding outpatient issues but stating that he is unhappy where he is living cannot live with family in [place] Medication Compliance: Yes Mental Status Exam Mental Status Exam Narrative: Patient is casually dressed he is somewhat disheveled flat affect. Speech is somewhat low is somewhat concrete thinking somewhat limited limited vocabulary. His able to state he has been feeling sad no one is helping him very unhappy where he is living in his current life states why would not walk down the road nothing is going to change at other times stating he did not want to harm himself denies any plan or intent in the setting no hallucinations or delusional material patient is somewhat hopeless helpless impulse control seems intact in the setting no thoughts of harm to others patterson affect mood improved Diagnostics Vital Signs (24Hr): Vital Signs - 24 hr 01/06/23 20:00 01/07/23 09:00 Temperature 97.2 F 99.1 F Pulse Rate 104 H 110 H Respiratory Rate 18 20 Blood Pressure 129/62 140/81 H Pulse Oximetry 95 95 Oxygen Delivery Method Room Air Room Air BMI result Body Mass Index 29.7 Labs 12/31/22 07:01 12/31/22 07:01 Labs: Laboratory Results - last 48 hr 01/05/23 01/05/23 01/06/23 16:29 20:17 07:40 POC Glucose 214 H 155 H 174 H 01/06/23 01/06/23 01/06/23 11:41 16:33 19:41 POC Glucose 218 H 160 H 190 H 01/07/23 06:59 POC Glucose 229 H Medications Medications Current Medications Acetaminophen (Acetaminophen 325 Mg Tablet) 650 mg PO Q6H PRN PRN Reason: Headache/Pain Mild Scale (1-3) Last Admin: 01/03/23 20:57 Dose: 650 mg Al Hydroxide/Mg Hydroxide (Magnesium Hydrox/Alum Hydrox 30 Ml Oral.Susp) 30 ml PO Q6H PRN PRN Reason: Heartburn/Nausea Last Admin: 01/03/23 00:39 Dose: 30 ml Amlodipine Besylate (Amlodipine Besylate 5 Mg Tablet) 5 mg PO DAILY [facility]; Protocol Last Admin: 01/07/23 09:09 Dose: 5 mg Aspirin (Aspirin Enteric Coated 81 Mg Tablet.) 81 mg PO DAILY [facility] Last Admin: 01/07/23 09:09 Dose: 81 mg Atorvastatin Calcium (Atorvastatin Calcium 40 Mg Tablet) 40 mg PO DAILY [facility] Last Admin: 01/07/23 09:09 Dose: 40 mg Divalproex Sodium (Divalproex Sodium 500 Mg Tablet.) 1,000 mg PO DAILY [facility] Last Admin: 01/07/23 09:08 Dose: 1,000 mg Divalproex Sodium (Divalproex Sodium 500 Mg Tablet.) 1,500 mg PO BEDTIME [facility] Last Admin: 01/06/23 19:51 Dose: 1,500 mg Duloxetine HCl (Duloxetine Hcl 60 Mg Capsule.) 60 mg PO DAILY [facility] Last Admin: 01/07/23 09:08 Dose: 60 mg Glucose (Glucose Gel 15 Gm Gel..Gram.) 15 gm PO Q15M PRN; Protocol PRN Reason: per Hypoglycemia Standing Ord. Hydroxyzine HCl (Hydroxyzine Hcl 25 Mg Tablet) 25 mg PO Q6H PRN PRN Reason: Anxiety Last Admin: 01/01/23 23:58 Dose: 25 mg Dextrose (D10) 250 mls @ 750 mls/hr IV Q15M PRN; Protocol PRN Reason: per Hypoglycemia Standing Ord. Insulin Human Lispro (Insulin Lispro 100 Unit/Ml 3 Ml Vial) 0 unit SUBCUT QIDACHS [facility]; Protocol Last Admin: 01/07/23 11:38 Dose: 4 unit Lidocaine (Lidocaine 4 % Patch Adh..Patch) 1 patch TRANSDERMA DAILY [facility]; Protocol Last Admin: 01/07/23 10:17 Dose: 1 patch Lisinopril (Lisinopril 5 Mg Tablet) 5 mg PO DAILY [facility]; Protocol Last Admin: 01/07/23 10:16 Dose: 5 mg Magnesium Hydroxide (Milk Of Magnesia 30 Ml Oral.Susp) 30 ml PO DAILY PRN PRN Reason: Constipation Metformin HCl (Metformin Hcl 1,000 Mg Tablet) 1,000 mg PO BIDWM [facility] Last Admin: 01/07/23 09:09 Dose: 1,000 mg Quetiapine Fumarate (Quetiapine Fumarate 25 Mg Tablet) 12.5 mg PO Q6H PRN PRN Reason: anxiety/restlessness Tamsulosin HCl (Tamsulosin Hcl 0.4 Mg Capsule) 0.4 mg PO BEDTIME [facility] Last Admin: 01/06/23 19:52 Dose: 0.4 mg Trazodone HCl (Trazodone Hcl 25 Mg Halftab) 25 mg PO Q4H PRN PRN Reason: anxiety/restlessness Last Admin: 01/06/23 22:15 Dose: 25 mg Allergies Allergies Allergy/AdvReac Type Severity Reaction Status Date / Time No Known Allergies Allergy Verified 12/30/22 19:04 Assessment & Plan Assessment & Plan (1) Major depression, recurrent: Status: Acute Code(s): F33.9 - Major depressive disorder, recurrent, unspecified (2) Cognitive disorder: Status: Acute Code(s): F09 - Unspecified mental disorder due to known physiological condition Plan Need to clarify further history triggers to present events patient clearly hopeless helpless unclear if was truly trying to harm himself Continue antidepressant Depakote appears to be because of impulse control difficulties social work for additional information help with discharge planning continue duloxetine Depakote for now unclear if the patient has had any response 01/01/2023 Continue plan of care monitor safety get additional information from outpatient providers treatment team in DDS team unclear what options are available to the patient continue Depakote Cymbalta 01/02/23 Pt seen in f/u mood dysphoric hopeless flat denies active si coordinate with n 01/03/2023 Continue plan of care coordinate with outpatient providers 01/04/2023 Continue plan of care Seroquel p.r.n. added for help with periods of severe anxiety irritability 01/05/23 Pt showing some improvement 01/06/2023: Continue current regimen and plans Consider day treatment Patient educated on: therapeutic strategies Informed Consent: further education needed Reason for contiued inpatient stay Substantial Risk for: harm to self, inability to function and rapid decompensa tion Time Spent With Patient Time: Total time managing care of this patient today ____ minutes.
[2023-01-06 16:39] LABS: Glucose, Whole Blood 160 mg/dL (60-115)
[2023-01-06] MEDS: Divalproex Sodium 500 MG TABLET.DR 1500 MG PO (19:51)
[2023-01-06] MEDS: Tamsulosin HCL 0.4 MG CAPSULE PO (19:52)
[2023-01-06 20:00] VITALS: BP 129/62; PULSE 104; RESP 18; TEMP 36.2; O2SAT 95
[2023-01-06 20:04] LABS: Glucose, Whole Blood 190 mg/dL (60-115)
[2023-01-06] MEDS: traZODone HCL 25 MG HALFTAB PO (22:15)
[2023-01-07 07:05] LABS: Glucose, Whole Blood 229 mg/dL (60-115)
[2023-01-07 09:00] VITALS: BP 140/81; PULSE 110; RESP 20; TEMP 37.3; O2SAT 95
[2023-01-07] MEDS: Insulin Lispro 100 UNIT/ML 3 ML VIAL SUBCUT ×4 (09:07→20:43)
[2023-01-07] MEDS: DULoxetine HCl 60 MG CAPSULE.DR PO (09:08)
[2023-01-07] MEDS: Divalproex Sodium 500 MG TABLET.DR 1000 MG PO (09:08)
[2023-01-07] MEDS: metFORMIN HCl 1,000 MG TABLET 1000 MG PO ×2 (09:09→16:37)
[2023-01-07] MEDS: Atorvastatin Calcium 40 MG TABLET PO (09:09)
[2023-01-07] MEDS: Aspirin Enteric Coated 81 MG TABLET.DR PO (09:09)
[2023-01-07] MEDS: amLODIPine Besylate 5 MG TABLET PO (09:09)
--- NOTE | 2023-01-07 09:16 | P.PNPSI_ITS ---
Subjective Subjective Date of Service: 01/07/23 Reason For Visit: depression si Subjective Notes: Conditional Voluntary Interim History: pt was seen and reviewed in rounds. Records and plans were reviewed. Labs were reviewed. He has been stable with no dangerous behaviors he is medication compliant. He continues to get point of care readings 4 times a day. Eating and sleeping adequately. No changes were made today Medication Compliance: Yes Side effects from medications: No Attending Groups: No Review of Systems Review of Systems General: No fevers, malaise, unintentional weight loss HEENT: No blurred vision, diplopia. No sore throat, nasal congestion, rhinorrhea, sinus pain, ear pain Cardiovascular: No chest pain, palpitations, or leg edema Respiratory: No shortness of breath, wheezing, cough GI: No abdominal pain, nausea, vomiting, diarrhea, constipation, melena, hematochezia : No dysuria, hematuria, increased urinary frequency, decreased urinary output MSK: No myalgia. +leg pain, +back pain Neuro: No headaches, weakness, paresthesias Skin: No rashes or lesions Mental Status Exam Mental Status Exam Narrative: In today's visit he is alert, pleasant and minimally interactive with in his [place]. Soft-spoken speech. No eye contact. Affect is constricted. Cognitively is limited. Judgment is marginal. Diagnostics Vital Signs (24Hr): Vital Signs - 24 hr 01/06/23 20:00 01/07/23 09:00 Temperature 97.2 F 99.1 F Pulse Rate 104 H 110 H Respiratory Rate 18 20 Blood Pressure 129/62 140/81 H Pulse Oximetry 95 95 Oxygen Delivery Method Room Air Room Air BMI result Body Mass Index 29.7 Labs 12/31/22 07:01 12/31/22 07:01 Labs: Laboratory Results - last 48 hr 01/05/23 01/05/23 01/05/23 11:13 16:29 20:17 POC Glucose 263 H 214 H 155 H 01/06/23 01/06/23 01/06/23 07:40 11:41 16:33 POC Glucose 174 H 218 H 160 H 01/06/23 01/07/23 19:41 06:59 POC Glucose 190 H 229 H Medications Medications Current Medications Acetaminophen (Acetaminophen 325 Mg Tablet) 650 mg PO Q6H PRN PRN Reason: Headache/Pain Mild Scale (1-3) Last Admin: 01/03/23 20:57 Dose: 650 mg Al Hydroxide/Mg Hydroxide (Magnesium Hydrox/Alum Hydrox 30 Ml Oral.Susp) 30 ml PO Q6H PRN PRN Reason: Heartburn/Nausea Last Admin: 01/03/23 00:39 Dose: 30 ml Amlodipine Besylate (Amlodipine Besylate 5 Mg Tablet) 5 mg PO DAILY [facility]; Pro tocol Last Admin: 01/07/23 09:09 Dose: 5 mg Aspirin (Aspirin Enteric Coated 81 Mg Tablet.) 81 mg PO DAILY [facility] Last Admin: 01/07/23 09:09 Dose: 81 mg Atorvastatin Calcium (Atorvastatin Calcium 40 Mg Tablet) 40 mg PO DAILY [facility] Last Admin: 01/07/23 09:09 Dose: 40 mg Divalproex Sodium (Divalproex Sodium 500 Mg Tablet.) 1,000 mg PO DAILY [facility] Last Admin: 01/07/23 09:08 Dose: 1,000 mg Divalproex Sodium (Divalproex Sodium 500 Mg Tablet.) 1,500 mg PO BEDTIME [facility] Last Admin: 01/06/23 19:51 Dose: 1,500 mg Duloxetine HCl (Duloxetine Hcl 60 Mg Capsule.) 60 mg PO DAILY [facility] Last Admin: 01/07/23 09:08 Dose: 60 mg Glucose (Glucose Gel 15 Gm Gel..Gram.) 15 gm PO Q15M PRN; Protocol PRN Reason: per Hypoglycemia Standing Ord. Hydroxyzine HCl (Hydroxyzine Hcl 25 Mg Tablet) 25 mg PO Q6H PRN PRN Reason: Anxiety Last Admin: 01/01/23 23:58 Dose: 25 mg Dextrose (D10) 250 mls @ 750 mls/hr IV Q15M PRN; Protocol PRN Reason: per Hypoglycemia Standing Ord. Insulin Human Lispro (Insulin Lispro 100 Unit/Ml 3 Ml Vial) 0 unit SUBCUT QIDACHS [facility]; Protocol Last Admin: 01/07/23 09:07 Dose: 4 unit Lidocaine (Lidocaine 4 % Patch Adh..Patch) 1 patch TRANSDERMA DAILY [facility]; Protocol Last Admin: 01/06/23 07:56 Dose: 1 patch Lisinopril (Lisinopril 5 Mg Tablet) 5 mg PO DAILY [facility]; Protocol Last Admin: 01/06/23 07:55 Dose: 5 mg Magnesium Hydroxide (Milk Of Magnesia 30 Ml Oral.Susp) 30 ml PO DAILY PRN PRN Reason: Constipation Metformin HCl (Metformin Hcl 1,000 Mg Tablet) 1,000 mg PO BIDWM [facility] Last Admin: 01/07/23 09:09 Dose: 1,000 mg Quetiapine Fumarate (Quetiapine Fumarate 25 Mg Tablet) 12.5 mg PO Q6H PRN PRN Reason: anxiety/restlessness Tamsulosin HCl (Tamsulosin Hcl 0.4 Mg Capsule) 0.4 mg PO BEDTIME [facility] Last Admin: 01/06/23 19:52 Dose: 0.4 mg Trazodone HCl (Trazodone Hcl 25 Mg Halftab) 25 mg PO Q4H PRN PRN Reason: anxiety/restlessness Last Admin: 01/06/23 22:15 Dose: 25 mg Allergies Allergies Allergy/AdvReac Type Severity Reaction Status Date / Time No Known Allergies Allergy Verified 12/30/22 19:04 Assessment & Plan Assessment & Plan (1) Major depression, recurrent: Status: Acute Code(s): F33.9 - Major depressive disorder, recurrent, unspecified (2) Cognitive disorder: Status: Acute Code(s): F09 - Unspecified mental disorder due to known physiological condition Plan Need to clarify further history triggers to present events patient clearly hopeless helpless unclear if was truly trying to harm himself Continue antidepressant Depakote appears to be because of impulse control difficulties social work for additional information help with discharge planning continue duloxetine Depakote for now unclear if the patient has had any response 01/01/2023 Continue plan of care monitor safety get additional information from outpatient providers treatment team in DDS team unclear what options are available to the patient continue Depakote Cymbalta 01/02/23 Pt seen in f/u mood dysphoric hopeless flat denies active si coordinate with n 01/03/2023 Continue plan of care coordinate with outpatient providers 01/04/2023 Continue plan of care Buster alonso added for help with periods of severe anxiety irritability 01/05/23 Pt showing some improvement 01/07/2023: Continue current regimen and plans Reason for contiued inpatient stay Substantial Risk for: inability to function Time Spent With Patient Time: Total time managing care of this patient today ____ minutes.
[2023-01-07] MEDS: lisinopriL 5 MG TABLET PO (10:16)
[2023-01-07] MEDS: Lidocaine 4 % Patch ADH..PATCH 1 PATCH TRANSDERMA (10:17)
[2023-01-07 16:28] LABS: Glucose, Whole Blood 205 mg/dL (60-115)
[2023-01-07 19:43] LABS: Glucose, Whole Blood 173 mg/dL (60-115)
[2023-01-07 20:00] VITALS: BP 134/78; PULSE 110; RESP 18; TEMP 36.4; O2SAT 94
[2023-01-07] MEDS: Magnesium Hydrox/Alum Hydrox 30 ML ORAL.SUSP PO (20:34)
[2023-01-07] MEDS: traZODone HCL 25 MG HALFTAB 75 MG PO (20:35)
[2023-01-07] MEDS: Divalproex Sodium 500 MG TABLET.DR 1500 MG PO (20:36)
[2023-01-07] MEDS: Tamsulosin HCL 0.4 MG CAPSULE PO (20:36)
[2023-01-07 20:43] LABS: Glucose, Whole Blood 180 mg/dL (60-115)
[2023-01-08] MEDS: Insulin Lispro 100 UNIT/ML 3 ML VIAL SUBCUT ×4 (07:30→20:00)
[2023-01-08 07:35] VITALS: BP 127/74; PULSE 113; RESP 18; TEMP 36.1; O2SAT 95
[2023-01-08 07:42] LABS: Glucose, Whole Blood 186 mg/dL (60-115)
[2023-01-08] MEDS: lisinopriL 5 MG TABLET PO (08:03)
[2023-01-08] MEDS: Atorvastatin Calcium 40 MG TABLET PO (08:03)
[2023-01-08] MEDS: amLODIPine Besylate 5 MG TABLET PO (08:03)
[2023-01-08] MEDS: DULoxetine HCl 60 MG CAPSULE.DR PO (08:03)
[2023-01-08] MEDS: metFORMIN HCl 1,000 MG TABLET 1000 MG PO ×2 (08:03→16:35)
[2023-01-08] MEDS: Divalproex Sodium 500 MG TABLET.DR 1000 MG PO (08:03)
[2023-01-08] MEDS: Aspirin Enteric Coated 81 MG TABLET.DR PO (08:03)
[2023-01-08] MEDS: Lidocaine 4 % Patch ADH..PATCH 1 PATCH TRANSDERMA (08:05)
--- NOTE | 2023-01-08 08:23 | P.PNPSI_ITS ---
Subjective Subjective Date of Service: 01/08/23 Reason For Visit: depression si Subjective Notes: Conditional Voluntary Interim History: Patient was seen and discussed in rounds today. He has been stable with no episodes of agitation. He has been medication compliant. No complaints or side effects. Eating and sleeping adequately. No changes were made today Medication Compliance: Yes Review of Systems Review of Systems Yes all other systems are reviewed and are negative Mental Status Exam Mental Status Exam Narrative: In today's visit he is alert, pleasant and minimally interactive. Soft-spoken speech. No eye contact. Affect is flat and constricted. No symptoms of psychosis. No dangerous behaviors. No SI. Cognitively he has slow thought processes. Judgment could not be assessed Diagnostics Vital Signs (24Hr): Vital Signs - 24 hr 01/07/23 09:00 01/07/23 20:00 Temperature 99.1 F 97.6 F Pulse Rate 110 H 110 H Respiratory Rate 20 18 Blood Pressure 140/81 H 134/78 Pulse Oximetry 95 94 Oxygen Delivery Method Room Air Room Air BMI result Body Mass Index 29.7 Labs 12/31/22 07:01 12/31/22 07:01 Labs: Laboratory Results - last 48 hr 01/06/23 01/06/23 01/06/23 07:40 11:41 16:33 POC Glucose 174 H 218 H 160 H 01/06/23 01/07/23 01/07/23 19:41 06:59 11:24 POC Glucose 190 H 229 H 205 H 01/07/23 01/07/23 01/08/23 16:31 20:39 07:35 POC Glucose 173 H 180 H 186 H Medications Medications Current Medications Acetaminophen (Acetaminophen 325 Mg Tablet) 650 mg PO Q6H PRN PRN Reason: Headache/Pain Mild Scale (1-3) Last Admin: 01/03/23 20:57 Dose: 650 mg Al Hydroxide/Mg Hydroxide (Magnesium Hydrox/Alum Hydrox 30 Ml Oral.Susp) 30 ml PO Q6H PRN PRN Reason: Heartburn/Nausea Last Admin: 01/07/23 20:34 Dose: 30 ml Amlodipine Besylate (Amlodipine Besylate 5 Mg Tablet) 5 mg PO DAILY [facility]; Protocol Last Admin: 01/08/23 08:03 Dose: 5 mg Aspirin (Aspirin Enteric Coated 81 Mg Tablet.) 81 mg PO DAILY [facility] Last Admin: 01/08/23 08:03 Dose: 81 mg Atorvastatin Calcium (Atorvastatin Calcium 40 Mg Tablet) 40 mg PO DAILY [facility] Last Admin: 01/08/23 08:03 Dose: 40 mg Divalproex Sodium (Divalproex Sodium 500 Mg Tablet.) 1,000 mg PO DAILY [facility] Last Admin: 01/08/23 08:03 Dose: 1,000 mg Divalproex Sodium (Divalproex Sodium 500 Mg Tablet.) 1,500 mg PO BEDTIME [facility] Last Admin: 01/07/23 20:36 Dose: 1,500 mg Duloxetine HCl (Duloxetine Hcl 60 Mg Capsule.) 60 mg PO DAILY [facility] Last Admin: 01/08/23 08:03 Dose: 60 mg Glucose (Glucose Gel 15 Gm Gel..Gram.) 15 gm PO Q15M PRN; Protocol PRN Reason: per Hypoglycemia Standing Ord. Hydroxyzine HCl (Hydroxyzine Hcl 25 Mg Tablet) 25 mg PO Q6H PRN PRN Reason: Anxiety Last Admin: 01/01/23 23:58 Dose: 25 mg Dextrose (D10) 250 mls @ 750 mls/hr IV Q15M PRN; Protocol PRN Reason: per Hypoglycemia Standing Ord. Insulin Human Lispro (Insulin Lispro 100 Unit/Ml 3 Ml Vial) 0 unit SUBCUT QIDACHS [facility]; Protocol Last Admin: 01/07/23 20:43 Dose: 2 unit Lidocaine (Lidocaine 4 % Patch Adh..Patch) 1 patch TRANSDERMA DAILY [facility]; Protocol Last Admin: 01/08/23 08:05 Dose: 1 patch Lisinopril (Lisinopril 5 Mg Tablet) 5 mg PO DAILY [facility]; Protocol Last Admin: 01/08/23 08:03 Dose: 5 mg Magnesium Hydroxide (Milk Of Magnesia 30 Ml Oral.Susp) 30 ml PO DAILY PRN PRN Reason: Constipation Metformin HCl (Metformin Hcl 1,000 Mg Tablet) 1,000 mg PO BIDWM [facility] Last Admin: 01/08/23 08:03 Dose: 1,000 mg Quetiapine Fumarate (Quetiapine Fumarate 25 Mg Tablet) 12.5 mg PO Q6H PRN PRN Reason: anxiety/restlessness Tamsulosin HCl (Tamsulosin Hcl 0.4 Mg Capsule) 0.4 mg PO BEDTIME [facility] Last Admin: 01/07/23 20:36 Dose: 0.4 mg Trazodone HCl (Trazodone Hcl 25 Mg Halftab) 25 mg PO Q4H PRN PRN Reason: anxiety/restlessness Last Admin: 01/06/23 22:15 Dose: 25 mg Trazodone HCl (Trazodone Hcl 25 Mg Halftab) 75 mg PO BEDTIME [facility] Last Admin: 01/07/23 20:35 Dose: 75 mg Allergies Allergies Allergy/AdvReac Type Severity Reaction Status Date / Time No Known Allergies Allergy Verified 12/30/22 19:04 Assessment & Plan Assessment & Plan (1) Major depression, recurrent: Status: Acute Code(s): F33.9 - Major depressive disorder, recurrent, unspecified (2) Cognitive disorder: Status: Acute Code(s): F09 - Unspecified mental disorder due to known physiological condition Plan Need to clarify further history triggers to present events patient clearly hopeless helpless unclear if was truly trying to harm himself Continue antidepressant Depakote appears to be because of impulse control difficulties social work for additional information help with discharge planning continue duloxetine Depakote for now unclear if the patient has had any response 01/01/2023 Continue plan of care monitor safety get additional information from outpatient providers treatment team in DDS team unclear what options are available to the patient continue Depakote Cymbalta 01/02/23 Pt seen in f/u mood dysphoric hopeless flat denies active si coordinate with n 01/03/2023 Continue plan of care coordinate with outpatient providers 01/04/2023 Continue plan of care Serobonniel p.r.n. added for help with periods of severe anxiety irritability 01/05/23 Pt showing some improvement 01/06/2023: Continue current regimen and plans Consider day treatment 01/07: Continue regimen and plans 01/08: Continue regimen and plans Reason for contiued inpatient stay Substantial Risk for: inability to function Time Spent With Patient Time: Total time managing care of this patient today ____ minutes.
[2023-01-08 11:31] LABS: Glucose, Whole Blood 187 mg/dL (60-115)
[2023-01-08 16:32] LABS: Glucose, Whole Blood 191 mg/dL (60-115)
[2023-01-08 18:00] VITALS: BP 165/80; PULSE 100; RESP 18; TEMP 37.4; O2SAT 95
[2023-01-08 19:52] LABS: Glucose, Whole Blood 215 mg/dL (60-115)
[2023-01-08] MEDS: Tamsulosin HCL 0.4 MG CAPSULE PO (20:01)
[2023-01-08] MEDS: Divalproex Sodium 500 MG TABLET.DR 1500 MG PO (20:01)
[2023-01-08] MEDS: traZODone HCL 25 MG HALFTAB 75 MG PO (20:01)
[2023-01-09 08:01] LABS: Glucose, Whole Blood 193 mg/dL (60-115)
[2023-01-09 08:08] LABS: Creatinine Clr Calc Pharmacy 92.5; Estimated Glomerular Filt Rate > 60
[2023-01-09 08:20] VITALS: BP 131/66; PULSE 104; RESP 18; TEMP 36.3; O2SAT 95
[2023-01-09] MEDS: Insulin Lispro 100 UNIT/ML 3 ML VIAL SUBCUT ×3 (08:21→21:12)
[2023-01-09] MEDS: Divalproex Sodium 500 MG TABLET.DR 1000 MG PO (08:23)
[2023-01-09] MEDS: DULoxetine HCl 60 MG CAPSULE.DR PO (08:24)
[2023-01-09] MEDS: Atorvastatin Calcium 40 MG TABLET PO (08:24)
[2023-01-09] MEDS: metFORMIN HCl 1,000 MG TABLET 1000 MG PO ×2 (08:24→16:42)
[2023-01-09] MEDS: Aspirin Enteric Coated 81 MG TABLET.DR PO (08:24)
[2023-01-09] MEDS: lisinopriL 5 MG TABLET PO (08:30)
[2023-01-09] MEDS: amLODIPine Besylate 5 MG TABLET PO (08:31)
[2023-01-09] MEDS: Lidocaine 4 % Patch ADH..PATCH 1 PATCH TRANSDERMA (08:33)
--- NOTE | 2023-01-09 10:24 | P.PNPSI_ITS ---
Subjective Subjective Date of Service: 01/09/23 Reason For Visit: depression si Subjective Notes: Conditional Voluntary Interim History: Pt well groomed, He reports doing well. He denies any physical or psychiatric concern. He denies SI/HI. No signs of VH/AH. He is visible on the unit, attends some groups. He is taking medications as prescribed. No behavioral concerns. He will d/c tomorrow. Review of Systems Review of Systems General: No fevers, malaise, unintentional weight loss HEENT: No blurred vision, diplopia. No sore throat, nasal congestion, rhinorrhea, sinus pain, ear pain Cardiovascular: No chest pain, palpitations, or leg edema Respiratory: No shortness of breath, wheezing, cough GI: No abdominal pain, nausea, vomiting, diarrhea, constipation, melena, hematochezia : No dysuria, hematuria, increased urinary frequency, decreased urinary output MSK: No myalgia. +leg pain, +back pain Neuro: No headaches, weakness, paresthesias Skin: No rashes or lesions Yes all other systems are reviewed and are negative Mental Status Exam Mental Status Exam Narrative: Appearance: casually groomed, good hygiene, in NAD Behavior: cooperative Speech: clear, normal rate/rhythm/volume, spontaneous Psychomotor: no agitation or retardation noted TP: linear TC: no signs of psychosis, feeling well. Mood: good Affect: congruent SI: denies HI: denies AH/VH: none Delusions: none Insight/judgment: fair x 2. Memory/cog: alert, oriented x 3. Diagnostics Vital Signs (24Hr): Vital Signs - 24 hr 01/08/23 18:00 Temperature 99.4 F Pulse Rate 100 Respiratory Rate 18 Blood Pressure 165/80 H Pulse Oximetry 95 Oxygen Delivery Method Room Air BMI result Body Mass Index 29.7 Labs 12/31/22 07:01 01/09/23 07:37 Labs: Laboratory Results - last 48 hr 01/07/23 01/07/23 01/07/23 11:24 16:31 20:39 Creatinine Estim Creat Clear Calc Estimated GFR POC Glucose 205 H 173 H 180 H 01/08/23 01/08/23 01/08/23 07:35 11:23 16:29 Creatinine Estim Creat Clear Calc Estimated GFR POC Glucose 186 H 187 H 191 H 01/08/23 01/09/23 01/09/23 19:48 07:37 07:57 Creatinine 0.84 Estim Creat Clear Calc 92.5 Estimated GFR > 60 POC Glucose 215 H 193 H 01/09/23 11:30 Creatinine Estim Creat Clear Calc Estimated GFR POC Glucose 150 H Medications Medications Current Medications Acetaminophen (Acetaminophen 325 Mg Tablet) 650 mg PO Q6H PRN PRN Reason: Headache/Pain Mild Scale (1-3) Last Admin: 01/03/23 20:57 Dose: 650 mg Al Hydroxide/Mg Hydroxide (Magnesium Hydrox/Alum Hydrox 30 Ml Oral.Susp) 30 ml PO Q6H PRN PRN Reason: Heartburn/Nausea Last Admin: 01/07/23 20:34 Dose: 30 ml Amlodipine Besylate (Amlodipine Besylate 5 Mg Tablet) 5 mg PO DAILY [facility]; Protocol Last Admin: 01/09/23 08:31 Dose: 5 mg Aspirin (Aspirin Enteric Coated 81 Mg Tablet.) 81 mg PO DAILY [facility] Last Admin: 01/09/23 08:24 Dose: 81 mg Atorvastatin Calcium (Atorvastatin Calcium 40 Mg Tablet) 40 mg PO DAILY [facility] Last Admin: 01/09/23 08:24 Dose: 40 mg Divalproex Sodium (Divalproex Sodium 500 Mg Tablet.) 1,000 mg PO DAILY [facility] Last Admin: 01/09/23 08:23 Dose: 1,000 mg Divalproex Sodium (Divalproex Sodium 500 Mg Tablet.) 1,500 mg PO BEDTIME [facility] Last Admin: 01/08/23 20:01 Dose: 1,500 mg Duloxetine HCl (Duloxetine Hcl 60 Mg Capsule.) 60 mg PO DAILY [facility] Last Admin: 01/09/23 08:24 Dose: 60 mg Glucose (Glucose Gel 15 Gm Gel..Gram.) 15 gm PO Q15M PRN; Protocol PRN Reason: per Hypoglycemia Standing Ord. Hydroxyzine HCl (Hydroxyzine Hcl 25 Mg Tablet) 25 mg PO Q6H PRN PRN Reason: Anxiety Last Admin: 01/01/23 23:58 Dose: 25 mg Dextrose (D10) 250 mls @ 750 mls/hr IV Q15M PRN; Protocol PRN Reason: per Hypoglycemia Standing Ord. Insulin Human Lispro (Insulin Lispro 100 Unit/Ml 3 Ml Vial) 0 unit SUBCUT QIDACHS [facility]; Protocol Last Admin: 01/09/23 11:42 Dose: Not Given Lidocaine (Lidocaine 4 % Patch Adh..Patch) 1 patch TRANSDERMA DAILY [facility]; Protocol Last Admin: 01/09/23 08:33 Dose: 1 patch Lisinopril (Lisinopril 5 Mg Tablet) 5 mg PO DAILY [facility]; Protocol Last Admin: 01/09/23 08:30 Dose: 5 mg Magnesium Hydroxide (Milk Of Magnesia 30 Ml Oral.Susp) 30 ml PO DAILY PRN PRN Reason: Constipation Metformin HCl (Metformin Hcl 1,000 Mg Tablet) 1,000 mg PO BIDWM [facility] Last Admin: 01/09/23 08:24 Dose: 1,000 mg Quetiapine Fumarate (Quetiapine Fumarate 25 Mg Tablet) 12.5 mg PO Q6H PRN PRN Reason: anxiety/restlessness Tamsulosin HCl (Tamsulosin Hcl 0.4 Mg Capsule) 0.4 mg PO BEDTIME [facility] Last Admin: 01/08/23 20:01 Dose: 0.4 mg Trazodone HCl (Trazodone Hcl 25 Mg Halftab) 25 mg PO Q4H PRN PRN Reason: anxiety/restlessness Last Admin: 01/06/23 22:15 Dose: 25 mg Trazodone HCl (Trazodone Hcl 25 Mg Halftab) 75 mg PO BEDTIME [facility] Last Admin: 01/08/23 20:01 Dose: 75 mg Allergies Allergies Allergy/AdvReac Type Severity Reaction Status Date / Time No Known Allergies Allergy Verified 12/30/22 19:04 Assessment & Plan Assessment & Plan (1) Major depression, recurrent: Status: Acute Code(s): F33.9 - Major depressive disorder, recurrent, unspecified (2) Cognitive disorder: Status: Acute Code(s): F09 - Unspecified mental disorder due to known physiological condition Plan Need to clarify further history triggers to present events patient clearly hopeless helpless unclear if was truly trying to harm himself Continue antidepressant Depakote appears to be because of impulse control difficulties social work for additional information help with discharge planning continue duloxetine Depakote for now unclear if the patient has had any response 01/01/2023 Continue plan of care monitor safety get additional information from outpatient providers treatment team in DDS team unclear what options are available to the patient continue Depakote Cymbalta 01/02/23 Pt seen in f/u mood dysphoric hopeless flat denies active si coordinate with [facility] 01/03/2023 Continue plan of care coordinate with outpatient providers 01/04/2023 Continue plan of care Buster alonso added for help with periods of severe anxiety irritability 01/05/23 Pt showing some improvement 01/06/2023: Continue current regimen and plans Consider day treatment 01/07: Continue regimen and plans 01/08: Continue regimen and plans 01/09 continue tx. dc planned for tomorrow. Reason for contiued inpatient stay Substantial Risk for: stable for discharge Time Spent With Patient Time: Total time managing care of this patient today ____ minutes.
[2023-01-09 11:39] LABS: Glucose, Whole Blood 150 mg/dL (60-115)
[2023-01-09 16:35] LABS: Glucose, Whole Blood 217 mg/dL (60-115)
[2023-01-09 18:00] VITALS: BP 148/77; PULSE 112; RESP 18; TEMP 37.1; O2SAT 98
[2023-01-09] MEDS: Tamsulosin HCL 0.4 MG CAPSULE PO (20:57)
[2023-01-09] MEDS: Divalproex Sodium 500 MG TABLET.DR 1500 MG PO (20:57)
[2023-01-09] MEDS: traZODone HCL 25 MG HALFTAB 75 MG PO (20:58)
[2023-01-09 21:11] LABS: Glucose, Whole Blood 231 mg/dL (60-115)
[2023-01-10 07:59] LABS: Glucose, Whole Blood 197 mg/dL (60-115)
[2023-01-10] MEDS: lisinopriL 5 MG TABLET PO (08:11)
[2023-01-10] MEDS: Atorvastatin Calcium 40 MG TABLET PO (08:11)
[2023-01-10] MEDS: Insulin Lispro 100 UNIT/ML 3 ML VIAL SUBCUT ×3 (08:11→20:50)
[2023-01-10] MEDS: amLODIPine Besylate 5 MG TABLET PO (08:12)
[2023-01-10] MEDS: Acetaminophen 325 MG TABLET 650 MG PO (08:12)
[2023-01-10] MEDS: Aspirin Enteric Coated 81 MG TABLET.DR PO (08:12)
[2023-01-10] MEDS: DULoxetine HCl 60 MG CAPSULE.DR PO (08:12)
[2023-01-10] MEDS: Divalproex Sodium 500 MG TABLET.DR 1000 MG PO (08:12)
[2023-01-10] MEDS: metFORMIN HCl 1,000 MG TABLET 1000 MG PO ×2 (08:12→17:37)
[2023-01-10 11:45] LABS: Glucose, Whole Blood 124 mg/dL (60-115)
[2023-01-10 16:33] LABS: Glucose, Whole Blood 186 mg/dL (60-115)
[2023-01-10 18:00] VITALS: BP 161/84; PULSE 90; RESP 18; TEMP 37; O2SAT 97
[2023-01-10] MEDS: Divalproex Sodium 500 MG TABLET.DR 1500 MG PO (20:43)
[2023-01-10] MEDS: Tamsulosin HCL 0.4 MG CAPSULE PO (20:43)
[2023-01-10] MEDS: traZODone HCL 25 MG HALFTAB 75 MG PO (20:43)
[2023-01-10 20:53] LABS: Glucose, Whole Blood 261 mg/dL (60-115)
--- NOTE | 2023-01-10 23:03 | P.PNPSI_ITS ---
Subjective Subjective Date of Service: 01/10/23 Reason For Visit: depression si Subjective Notes: Conditional Voluntary Interim History: Patient seems to be improving discharge planning Medication Compliance: Yes Mental Status Exam Mental Status Exam Patient Appearance: Appropriate Patient Orientation: Person Level of Consciousness: Awake and Appropriate Patient Behavior: Guarded Mood Description: Constricted Affect Description: Calm Patient Cognition Impaired: Yes Ability to Follow Directions: Good Speech Pattern: Clear Hallucinations: None Delusions: Not Present Thought Process: Distracted Thought Content: positive for [place] and positive for Poverty of Content Judgement: Poor Diagnostics Vital Signs (24Hr): Vital Signs - 24 hr 01/10/23 18:00 Temperature 98.6 F Pulse Rate 90 Respiratory Rate 18 Blood Pressure 161/84 H Pulse Oximetry 97 Oxygen Delivery Method Room Air BMI result Body Mass Index 29.7 Labs 12/31/22 07:01 01/09/23 07:37 Labs: Laboratory Results - last 48 hr 01/09/23 01/09/23 01/09/23 07:37 07:57 11:30 Creatinine 0.84 Estim Creat Clear Calc 92.5 Estimated GFR > 60 POC Glucose 193 H 150 H 01/09/23 01/09/23 01/10/23 16:30 21:05 07:55 Creatinine Estim Creat Clear Calc Estimated GFR POC Glucose 217 H 231 H 197 H 01/10/23 01/10/23 01/10/23 11:41 16:30 20:42 Creatinine Estim Creat Clear Calc Estimated GFR POC Glucose 124 H 186 H 261 H Medications Medications Current Medications Acetaminophen (Acetaminophen 325 Mg Tablet) 650 mg PO Q6H PRN PRN Reason: Headache/Pain Mild Scale (1-3) Last Admin: 01/10/23 08:12 Dose: 650 mg Al Hydroxide/Mg Hydroxide (Magnesium Hydrox/Alum Hydrox 30 Ml Oral.Susp) 30 ml PO Q6H PRN PRN Reason: Heartburn/Nausea Last Admin: 01/07/23 20:34 Dose: 30 ml Amlodipine Besylate (Amlodipine Besylate 5 Mg Tablet) 5 mg PO DAILY [facility]; Protocol Last Admin: 01/10/23 08:12 Dose: 5 mg Aspirin (Aspirin Enteric Coated 81 Mg Tablet.) 81 mg PO DAILY [facility] Last Admin: 01/10/23 08:12 Dose: 81 mg Atorvastatin Calcium (Atorvastatin Calcium 40 Mg Tablet) 40 mg PO DAILY [facility] Last Admin: 01/10/23 08:11 Dose: 40 mg Divalproex Sodium (Divalproex Sodium 500 Mg Tablet.) 1,000 mg PO DAILY [facility] Last Admin: 01/10/23 08:12 Dose: 1,000 mg Divalproex Sodium (Divalproex Sodium 500 Mg Tablet.) 1,500 mg PO BEDTIME [facility] Last Admin: 01/10/23 20:43 Dose: 1,500 mg Duloxetine HCl (Duloxetine Hcl 60 Mg Capsule.) 60 mg PO DAILY [facility] Last Admin: 01/10/23 08:12 Dose: 60 mg Glucose (Glucose Gel 15 Gm Gel..Gram.) 15 gm PO Q15M PRN; Protocol PRN Reason: per Hypoglycemia Standing Ord. Hydroxyzine HCl (Hydroxyzine Hcl 25 Mg Tablet) 25 mg PO Q6H PRN PRN Reason: Anxiety Last Admin: 01/01/23 23:58 Dose: 25 mg Dextrose (D10) 250 mls @ 750 mls/hr IV Q15M PRN; Protocol PRN Reason: per Hypoglycemia Standing Ord. Insulin Human Lispro (Insulin Lispro 100 Unit/Ml 3 Ml Vial) 0 unit SUBCUT QIDACHS [facility]; Protocol Last Admin: 01/10/23 20:50 Dose: 6 unit Lidocaine (Lidocaine 4 % Patch Adh..Patch) 1 patch TRANSDERMA DAILY [facility]; Protocol Last Admin: 01/10/23 08:13 Dose: Not Given Lisinopril (Lisinopril 5 Mg Tablet) 5 mg PO DAILY [facility]; Protocol Last Admin: 01/10/23 08:11 Dose: 5 mg Magnesium Hydroxide (Milk Of Magnesia 30 Ml Oral.Susp) 30 ml PO DAILY PRN PRN Reason: Constipation Metformin HCl (Metformin Hcl 1,000 Mg Tablet) 1,000 mg PO BIDWM [facility] Last Admin: 01/10/23 17:37 Dose: 1,000 mg Quetiapine Fumarate (Quetiapine Fumarate 25 Mg Tablet) 12.5 mg PO Q6H PRN PRN Reason: anxiety/restlessness Tamsulosin HCl (Tamsulosin Hcl 0.4 Mg Capsule) 0.4 mg PO BEDTIME [facility] Last Admin: 01/10/23 20:43 Dose: 0.4 mg Trazodone HCl (Trazodone Hcl 25 Mg Halftab) 25 mg PO Q4H PRN PRN Reason: anxiety/restlessness Last Admin: 01/06/23 22:15 Dose: 25 mg Trazodone HCl (Trazodone Hcl 25 Mg Halftab) 75 mg PO BEDTIME [facility] Last Admin: 01/10/23 20:43 Dose: 75 mg Allergies Allergies Allergy/AdvReac Type Severity Reaction Status Date / Time No Known Allergies Allergy Verified 12/30/22 19:04 Assessment & Plan Assessment & Plan (1) Major depression, recurrent: Status: Acute Code(s): F33.9 - Major depressive disorder, recurrent, unspecified (2) Cognitive disorder: Status: Acute Code(s): F09 - Unspecified mental disorder due to known physiological condition Plan Need to clarify further history triggers to present events patient clearly hopeless helpless unclear if was truly trying to harm himself Continue antidepressant Depakote appears to be because of impulse control difficulties social work for additional information help with discharge planning continue duloxetine Depakote for now unclear if the patient has had any response 01/01/2023 Continue plan of care monitor safety get additional information from outpatient providers treatment team in DDS team unclear what options are available to the patient continue Depakote Cymbalta 01/02/23 Pt seen in f/u mood dysphoric hopeless flat denies active si coordinate with n 01/03/2023 Continue plan of care coordinate with outpatient providers 01/04/2023 Continue plan of care Buster [email or web address]. added for help with periods of severe anxiety irritability 01/05/23 Pt showing some improvement 01/06/2023: Continue current regimen and plans Consider day treatment 01/07: Continue regimen and plans 01/08: Continue regimen and plans 01/09 continue tx. dc planned for tomorrow. 01/10/2023 Patient stabilizing continue discharge planning monitor symptoms Reason for contiued inpatient stay Substantial Risk for: rapid decompensation Time Spent With Patient Time: Total time managing care of this patient today ____ minutes.
[2023-01-11 07:57] LABS: Glucose, Whole Blood 177 mg/dL (60-115)
[2023-01-11 08:30] VITALS: BP 133/82; PULSE 100; RESP 16; TEMP 36.6; O2SAT 94
[2023-01-11] MEDS: Aspirin Enteric Coated 81 MG TABLET.DR PO (09:45)
[2023-01-11] MEDS: Insulin Lispro 100 UNIT/ML 3 ML VIAL SUBCUT ×2 (09:45→11:26)
[2023-01-11] MEDS: Divalproex Sodium 500 MG TABLET.DR 1000 MG PO (09:46)
[2023-01-11] MEDS: amLODIPine Besylate 5 MG TABLET PO (09:46)
[2023-01-11] MEDS: DULoxetine HCl 60 MG CAPSULE.DR PO (09:46)
[2023-01-11] MEDS: Atorvastatin Calcium 40 MG TABLET PO (09:46)
[2023-01-11] MEDS: lisinopriL 5 MG TABLET PO (09:46)
[2023-01-11] MEDS: metFORMIN HCl 1,000 MG TABLET 1000 MG PO (09:46)
--- NOTE | 2023-01-11 10:30 | P.DS_ITS ---
DS: Providers Provider Date of Service: 01/11/23 Date of admission: 12/30/22 18:42 Date of discharge: 01/11/23 Primary care physician: Mitch Keene MD Consults: 12/30/22 19:08 Consult to Hospitalist Routine Consulting Provider: Hospitalist Reason For Exam: dementia diabetes htn adm physical DS: Diagnosis Discharge Diagnosis (1) Major depression, recurrent: Status: Acute (2) Cognitive disorder: Status: Acute DS: Medications Discharge Medications Home Medications: Home Medications Medication Instructions Recorded Confirmed aspirin 81 mg capsule 81 mg PO DAILY 12/30/22 12/30/22 atorvastatin 40 mg tablet (Lipitor) 40 mg PO DAILY 12/30/22 12/30/22 carbamide peroxide 6.5 % ear drops 6.5 drp 12/30/22 (Debrox) cholecalciferol (vitamin D3) 25 12/30/22 mcg (1,000 unit) tablet (Vitamin D3) diclofenac sodium 75 mg mg PO 12/30/22 tablet,delayed release divalproex 500 mg tablet,delayed 1,000 mg PO DAILY 12/30/22 12/30/22 release divalproex 500 mg tablet,delayed 1,500 mg PO BEDTIME 12/30/22 12/30/22 release duloxetine 60 mg capsule,delayed 60 mg PO DAILY 12/30/22 12/30/22 release (Cymbalta) fesoterodine 8 mg tablet,extended mg PO 12/30/22 release 24 hr (Toviaz) omeprazole 20 mg tablet,delayed mg PO 12/30/22 release tamsulosin 0.4 mg capsule (Flomax) mg PO 12/30/22 Previous Rx's Medication Instructions Recorded hydroxyzine HCl 25 mg tablet 25 mg PO Q6H PRN Anxiety #90 tabs 01/10/23 lidocaine 4 % topical patch 1 patch transdermal DAILY 30 days 01/10/23 (Lidocaine Pain Relief) #30 ea lisinopril 5 mg tablet 5 mg PO DAILY 30 days #30 tabs 01/10/23 metformin 1,000 mg tablet 1,000 mg PO BIDWM #60 tabs 01/10/23 trazodone 50 mg tablet See Rx Instructions .Route 01/10/23 .COMPLEX 30 days #90 tabs Mental Status Exam Mental Status Exam Patient Appearance: Appropriate Patient Orientation: Person Level of Consciousness: Awake and Appropriate Patient Behavior: Guarded Mood Description: Constricted Affect Description: Calm Patient Cognition Impaired: Yes Ability to Follow Directions: Good Speech Pattern: Clear Hallucinations: None Delusions: Not Present Thought Process: Distracted Thought Content: positive for [place] and positive for Poverty of Content Judgement: Poor Data Data Completed and Pending Completed studies during hospitalization [Text1]: 01/04/23 01/04/23 01/04/23 11:29 16:19 20:19 Creatinine Estim Creat Clear Calc Estimated GFR POC Glucose 195 H 180 H 187 H 01/05/23 01/05/23 01/05/23 07:27 11:13 16:29 Creatinine Estim Creat Clear Calc Estimated GFR POC Glucose 224 H 263 H 214 H 01/05/23 01/06/23 01/06/23 20:17 07:40 11:41 Creatinine Estim Creat Clear Calc Estimated GFR POC Glucose 155 H 174 H 218 H 01/06/23 01/06/23 01/07/23 16:33 19:41 06:59 Creatinine Estim Creat Clear Calc Estimated GFR POC Glucose 160 H 190 H 229 H 01/07/23 01/07/23 01/07/23 11:24 16:31 20:39 Creatinine Estim Creat Clear Calc Estimated GFR POC Glucose 205 H 173 H 180 H 01/08/23 01/08/23 01/08/23 07:35 11:23 16:29 Creatinine Estim Creat Clear Calc Estimated GFR POC Glucose 186 H 187 H 191 H 01/08/23 01/09/23 01/09/23 19:48 07:37 07:57 Creatinine 0.84 Estim Creat Clear Calc 92.5 Estimated GFR > 60 POC Glucose 215 H 193 H 01/09/23 01/09/23 01/09/23 11:30 16:30 21:05 Creatinine Estim Creat Clear Calc Estimated GFR POC Glucose 150 H 217 H 231 H 01/10/23 01/10/23 01/10/23 07:55 11:41 16:30 Creatinine Estim Creat Clear Calc Estimated GFR POC Glucose 197 H 124 H 186 H 01/10/23 01/11/23 20:42 07:50 Creatinine Estim Creat Clear Calc Estimated GFR POC Glucose 261 H 177 H DS: Summary Hospital Course Hospital Course: The patient was [facility] due to exacerbation of depression and irritability. According to his providers, the patient is chronically dysphoric, happy with his living situation and in the last months he had been worse. Please see the HPI of the admission note for further details. On admission, we review his list of medications and we keep you Cymbalta and Depakote. Eventually was added and Seroquel p.r.n. for irritability and anxiety but he use it minimally. Later on, the team decided to add trazodone p.r.n. with for improvement. The patient's behavior improved, he was able to participate in some groups and he was future oriented. Even though, he feels unhappy going back to his prison. Since there were no safety concerns discharge planning was discussed. Time spent discussing smoking cessation with patient: 3 to 10 minutes Status at Discharge Cognitive/behavioral status at discharge: Chronically impaired at baseline Functional status at discharge: independent ambulation Overall status at discharge: patient is back to baseline Time Spent with Patient Time attestation: Total time managing care of this patient today ____ minutes. Time spent: Less than 30 minutes Discharge Plan Discharge Anticipated Discharge Date/Time: 01/11/23 11:00 Patient Disposition: Xfer Other Discharge Diagnosis: major depression recurrent Intellectual disability with behavioral problems Referrals: Dr Aguirre [facility] [Other] - 02/03/23 9:30 am (Your next appointment with Dr Aguirre for post hospital psychiatry appointment is scheduled for 02/03/23 at 9:30am.) Department of [facility] [Other] - 01/10/23 (Follow up with [facility] rn field case manager after discharge and resume [facility] services . ) [facility] [Other] - 01/10/23 (Discharge to 24 hour prison setting and follow up with outpatient providers at [facility] and [facility]. ) Katina Nelson [facility] [Other] - 01/16/23 6:00 pm (Your next telehealth therapy appointment with Katina is on Monday01/16/23 at 6pm. ) Mitch Keene MD [Primary Care Provider] - 1 Week Discharge Medications: New hydroxyzine HCl 25 mg Tablet 25 mg PO Q6H PRN (Reason: Anxiety) Qty: 90 1RF lisinopril 5 mg Tablet 5 mg PO DAILY 30 Days Qty: 30 0RF Protocol: Hold for SBP< HOLD for SBP < : 90 lidocaine [Lidocaine Pain Relief] 4 % Adhesive Patch,Medicated 1 patch transdermal DAILY 30 Days Qty: 30 0RF Protocol: Apply to: Apply to: low back Continued atorvastatin [Lipitor] 40 mg Tablet 40 mg PO DAILY tamsulosin [Flomax] 0.4 mg Capsule PO Debrox 6.5 % Drops 6.5 drp diclofenac sodium 75 mg Tablet,Delayed Release (Dr/Ec) PO duloxetine [Cymbalta] 60 mg Capsule,Delayed Release(Dr/Ec) 60 mg PO DAILY cholecalciferol (vitamin D3) [Vitamin D3] 25 mcg (1,000 unit) Tablet omeprazole 20 mg Tablet,Delayed Release (Dr/Ec) PO fesoterodine [Toviaz] 8 mg Tablet Extended Release 24 Hr PO aspirin 81 mg Capsule 81 mg PO DAILY divalproex 500 mg tablet,delayed release (DR/EC) 1,000 mg PO DAILY divalproex 500 mg tablet,delayed release (DR/EC) 1,500 mg PO BEDTIME Changed trazodone 50 mg Tablet See Rx Instructions .ROUTE .COMPLEX 30 Days Qty: 90 0RF Rx Instructions: 1 1/2 bedtime 1/2 tab every 6 hours as needed for agitation metformin 1,000 mg Tablet 1,000 mg PO BIDWM Qty: 60 0RF Discontinued Zyrtec 10 mg Capsule Discharge Orders: Discharge Order (Routine); Ordered 01/11/23 Ordered By: Brad Pelayo Diet: Advance to usual diet Activity on Discharge: As tolerated Stand Alone Forms: Patient Portal Discharge page, Community Support Care Plan Goals: Stable mood no harm to self or others Use words and problem solve when feeling stressed Health Concerns: diabetes self harm behavoir Plan of Treatment: medicatiion counseling Assessment: improved mood and stability
[2023-01-11 11:23] LABS: Glucose, Whole Blood 241 mg/dL (60-115)
== END 2023-01-11 12:30 | disposition other institution (70) | DRG 885 ==
PROVIDERS: Physician Assistant; Admitting Provider Psychiatry & Neurology Psychiatry; PCP Family Medicine; Visit Provider Psychiatry & Neurology Psychiatry
DX: F33.9 Major depressive disorder, recurrent, unspecified (principal); R45.851 Suicidal ideations; N40.0 Benign prostatic hyperplasia without lower urinary tract symptoms; M54.59 Other low back pain; G89.29 Other chronic pain; M79.7 Fibromyalgia; E11.9 Type 2 diabetes mellitus without complications; Z20.822 Contact with and (suspected) exposure to COVID-19; Z79.82 Long term (current) use of aspirin; Z79.84 Long term (current) use of oral hypoglycemic drugs; Z79.899 Other long term (current) drug therapy
CPT/HCPCS: 36415; 80053; 80061; 80164; 82565; 82947; 83036; 84443; 85025; 87635